=== PATIENT | male | born 1965 | race Caucasian/White ===

== ENCOUNTER 2021-07-09 04:06 | Day surgery (SDC) | payer BC, SELFPAY ==
[2021-06-25 13:54] VITALS: BMI 36.6
--- NOTE | 2021-07-08 12:21 | PM.HPGS ---
History of Present Illness History of Present Illness Consent: Risks, benefits, and alternatives have been discussed and questions answered. Patient agrees to proceed with procedure. Chief complaint: GERD, neoplasm screening Narrative: Valentin Crow is a 55 year old male With acid reflux symptoms. he also had passed some blood in his stools over month or so ago there was dark red and clotted He is also referred for colon cancer screening. Review of Systems Review of Systems: All systems reviewed & are unremarkable except as noted in HPI and below PMFSH Past Medical History Medical History Hyperlipidemia Obesity Social History Social History Years smoked: 6 Smoking status: Former smoker Tobacco type: cigarettes Alcohol intake: current Drinks per week: 12 Substance use: never Substance use type: does not use Living arrangements: with family Spiritual care concerns: No Meds Home Medications and Allergies Home Medications Medication Instructions Recorded Confirmed Type folic acid 1 mg PO DAILY 06/25/21 06/25/21 History rosuvastatin 40 mg PO DAILY 06/25/21 06/25/21 History Allergies Allergy/AdvReac Type Severity Reaction Status Date / Time No Known Allergies Allergy Verified 07/09/21 08:38 Exam Resp: Auscultation: clear to auscultation bilaterally Cardio: Rate: regular rate Rhythm: regular rhythm GI: GI Palp: Yes Soft to palpation and No Tenderness to palpation present (GI) Assessment and Plan Assessment and plan (1) Colon cancer screening: Code(s): Z12.11 - Encounter for screening for malignant neoplasm of colon Status: Acute Assessment and Plan: Colonoscopy with possible biopsy or polypectomy or cautery or injection of substances. (2) Melena: Code(s): K92.1 - Melena Status: Acute Assessment and Plan: EGD with possible biopsy or dilatation or cautery.
[2021-07-09 08:38] VITALS: BP 149/83; PULSE 73; RESP 16; TEMP 36.4; O2SAT 96
[2021-07-09 08:40] VITALS: BMI 37.0
--- NOTE | 2021-07-09 08:45 | WPDANESEPPF ---
Anes - Initial Pre Proc Eval Procedure: Operation Date: 07/09/21 10:00 Proposed Procedures p Esophagogastroduodenoscopy & Screening Colonoscopy - Heriberto Mai MD Date/Time: 07/09/21 08:45 Surgeon: Heriberto Mai MD Pre Op Diagnosis: GERD, neoplasm screening Patient Data Age: 55 Gender: M Height: 1.83 m Weight: 123.8 kg Last Vital Signs Temp 36.4 C 07/09/21 08:38 Pulse 73 07/09/21 08:38 Resp 16 07/09/21 08:38 BP 149/83 H 07/09/21 08:38 Pulse Ox 96 07/09/21 08:38 Allergies Allergy/AdvReac Type Severity Reaction Status Date / Time No Known Allergies Allergy Verified 07/09/21 08:38 Home Medications Medication Instructions Recorded Confirmed Type folic acid 1 mg PO DAILY 06/25/21 06/25/21 History rosuvastatin 40 mg PO DAILY 06/25/21 06/25/21 History Patient hx anesthesia problems: none Family hx anesthesia problems: none Results Review: All pre-operative results and documents have been reviewed as part of the pre-operative evaluation. PMFSH Past Medical History Medical History (Updated 07/09/21 @ 08:45 by Tj Simpson MD) Hyperlipidemia Obesity Social History Social History Years smoked: 6 Smoking status: Former smoker Tobacco type: cigarettes Alcohol intake: current Drinks per week: 12 Substance use: never Substance use type: does not use Living arrangements: with family Spiritual care concerns: No Anes - Eval Final PreProcedure Day of Procedure 07/09/21 08:45 Patient weight: obese Heart: regular rate and rhythm Lungs: clear to auscultation Airway: Mallampati scale class II Neurological: alert and oriented Last oral intake: >/= 8 hours ASA classification: II Emergent: no Anesthetic plan: proceed Anesthesia type and monitoring: general GIVS and standard monitoring Results Review: All pre-operative results and documents have been reviewed as part of the pre-operative evaluation. Informed Consent: The patient's anesthetic plan and its attendant risks and benefits were discussed with the patient/family/POA. Questions were solicited and answers provided to the satisfaction of the patient/family/POA.
[2021-07-09] MEDS: LACTATED RINGERS 1,000 ML 150 ML IV CONT (08:50)
[2021-07-09] MEDS: BENZOCAINE (*SP) 60 ML SPRAY CAN (HURRICAINE) 1 SPRAY MUCOUS MEM (09:40)
--- NOTE | 2021-07-09 09:49 | SUR.OPER ---
EGD ENDED AT 944, COLONOSCOPY BEGAN AT 952.
[2021-07-09] MEDS: SIMETHICONE ORAL SUSPENSION 20 MG/0.3 ML 30 ML BOTTLE 0.6 ML IRRIGATION (10:02)
[2021-07-09 10:16] VITALS: BP 116/71; PULSE 69; RESP 16; O2SAT 96
[2021-07-09 10:26] VITALS: BP 125/89; PULSE 71; RESP 16; O2SAT 100
[2021-07-09 10:36] VITALS: BP 136/93; PULSE 65; RESP 16; O2SAT 98
== END 2021-07-09 10:50 | disposition home or self-care (01) ==
PROVIDERS: PCP Internal Medicine; Visit Provider Internal Medicine Gastroenterology
PROC: 0DJ08ZZ Inspection of Upper Intestinal Tract, Via Natural or Artificial Opening Endoscopic (ICD-10-PCS; CPT 43235; principal; 2021-07-09 10:00)
DX: Z12.11 Encounter for screening for malignant neoplasm of colon (principal); C18.7 Malignant neoplasm of sigmoid colon; D12.4 Benign neoplasm of descending colon; K57.30 Diverticulosis of large intestine without perforation or abscess without bleeding; K92.1 Melena; K21.9 Gastro-esophageal reflux disease without esophagitis; K29.70 Gastritis, unspecified, without bleeding; E78.5 Hyperlipidemia, unspecified; E66.9 Obesity, unspecified; Z68.37 Body mass index [BMI] 37.0-37.9, adult; Z87.891 Personal history of nicotine dependence
CPT/HCPCS: 45385; 45380; 45381; 43239; 87081; 88305; J2704; J7120

== ENCOUNTER 2021-07-22 17:12 | Outpatient (CLI) | payer BC, SELFPAY ==
--- NOTE | ~2021-07-22 | CT_ITS ---
EXAMINATION: CT abdomen pelvis w con INDICATION: Malignant neoplasm of the sigmoid colon TECHNIQUE: Computed tomographic images of the abdomen and pelvis were obtained after the administrati on of 100 cc of Omnipaque 350 intravenous contrast. The dose-length product (DLP) was 1531.94 mGy-cm. Automated exposure control and iterative reconstruction technique were employed. COMPARISON: None available FINDINGS: The lung bases are clear. The heart size is normal. The liver, spleen, pancreas, gallbladde r, and adrenal glands are normal. Cysts of the right kidney measure up to 2 cm. The left kidney is un remarkable. There is irregular wall thickening of the sigmoid colon likely corresponding to known mal ignancy. Lymph nodes in the adjacent sigmoid mesentery are mildly enlarged. There is no free intraper itoneal gas or evidence of bowel obstruction. There is severe lumbar spondylosis. IMPRESSION: 1. Wall thickening of the sigmoid colon likely corresponding to known malignancy. Mildly enlarged adj acent mesenteric lymph nodes may be reactive or metastatic. Reviewed, dictated and finalized at location F. IMPRESSION: 1. Wall thickening of the sigmoid colon likely corresponding to known malignanc y. Mildly enlarged adjacent mesenteric lymph nodes may be reactive or metastati c.
== END 2021-07-22 17:13 | disposition home or self-care (01) ==
PROVIDERS: PCP Internal Medicine; Visit Provider Internal Medicine Gastroenterology
DX: C18.7 Malignant neoplasm of sigmoid colon (principal); N28.1 Cyst of kidney, acquired; M47.816 Spondylosis without myelopathy or radiculopathy, lumbar region; R59.0 Localized enlarged lymph nodes
CPT/HCPCS: 74177; Q9967

== ENCOUNTER 2021-07-30 02:04 | Day surgery (SDC) | payer BC, SELFPAY ==
[2021-07-27 09:02] VITALS: BMI 35.9
--- NOTE | 2021-07-27 09:03 | PC.NURSE ---
Report to the Outpatient Waiting Room, entrance under the green pavilion located off [facility], at time _0700___ on date ___07/30/21____. OR Time: . - You and your visitor will be asked a series of questions to screen for COVID 19 for your protection. - Only one visitor is allowed at this time. - The patient visitor is requested to leave or wait in car when not with patient. - A mask is required within the hospital. Patients may have clear liquids (water, carbonated beverages, clear teas, apple juice) until 3 hours prior to surgery with a maximum of 20 ounces. - No food from midnight until time of surgery - Infants may have breast milk until 4 hours before surgery, formula 6 hours prior to surgery. - Children will be allowed to drink immediately following surgery. If applicable, please bring a bottle or sippy cup to assist with drinking. Juice, water, soda, and popsicles are readily available. For infants on formula, please bring formula the day of surgery. Pacifiers are allowed. Take the following medications with a SIP of water the morning of surgery: ___NONE Medications to discontinue per physician __FOLIC ACID Date to take last dose__07/27/21 Please no make-up, nail occitan, hairspray, perfume, deodorant, or body powder the day of surgery. No jewelry (including any body piercings) or valuables the day of surgery, leave them at home. Please take a shower or bath the night before, or the morning of, surgery with an antibacterial soap. Wear comfortable, loose fitting clothing. Children are encouraged to wear pajamas. - Jewelry must be removed prior to entering the operating room. Rings and piercings that are not removed may be cut off. - The hospital will not accept responsibility for valuables. - Please leave all valuables, including medications, at home the day of surgery. If you are going home after surgery, a licensed batch mixing truck driver must drive you home. - NO public transportation without another adult. - We recommend that an adult stay with you for 24 hours following discharge. - We also recommend that you do not drive, make important decision, drink alcoholic beverages, or take any drugs that were not prescribed by your health care provider for at least 24 hours after your discharge time. For Pediatric surgeries, we recommend two adults accompany the child home (only one inside the building at this time). Follow any additional instructions given to you from your surgeon. If you or anyone in your household have experienced Covid symptoms in the past week, please notify your surgeon or the nurse liaison at the phone number below for possible testing. Telephone instructions given to __PATIENT___and asked if any additional questions and then verbalized understanding. Patient advised to call surgeon office or pre surgery nurse liaison [phone] if any additional questions.
[2021-07-30] VITALS (7 sets, daily range): BP systolic 139–161; BP diastolic 76–91; PULSE 71–85; RESP 12–16; TEMP 36.2–36.7; O2SAT 94–100
--- NOTE | 2021-07-30 09:07 | ECG_ITS ---
Measurements Intervals [place] Rate: 76 P: 57 UT: 172 QRS: 15 QRSD: 94 T: 32 QT: 392 QTc: 442 Interpretive Statements SINUS RHYTHM NORMAL ECG Electronically Signed On 07-30-2021 9:35:01 CDT by Madi Nicholas D.O.
[2021-07-30] MEDS: ACETAMINOPHEN 500 MG TABLET 1000 MG PO (09:25)
[2021-07-30] MEDS: KETOROLAC 15 MG/ML VIAL (*BKC) IV PUSH (09:26)
[2021-07-30] MEDS: LACTATED RINGERS 1,000 ML 30 ML IV CONT (09:29)
--- NOTE | 2021-07-30 09:36 | WPDANESEPPF ---
Anes - Initial Pre Proc Eval Procedure: Operation Date: 07/30/21 10:30 Proposed Procedures p Proctoscopy, Sigmoidoscopy - Allen De La Cruz MD Date/Time: 07/30/21 09:36 Surgeon: Allen De La Cruz MD Pre Op Diagnosis: Sigmoid Colon Ca Patient Data Age: 55 Gender: M Height: 1.83 m Weight: 124 kg Last Vital Signs Temp 36.7 C 07/30/21 09:31 Pulse 85 07/30/21 09:31 Resp 16 07/30/21 09:31 BP 161/87 H 07/30/21 09:31 Pulse Ox 96 07/30/21 09:31 Allergies Allergy/AdvReac Type Severity Reaction Status Date / Time No Known Allergies Allergy Verified 07/27/21 08:57 Home Medications Medication Instructions Recorded Confirmed Type folic acid 1 mg PO DAILY 06/25/21 07/29/21 History rosuvastatin 40 mg PO DAILY 06/25/21 07/29/21 History Patient hx anesthesia problems: none Family hx anesthesia problems: none Results Review: All pre-operative results and documents have been reviewed as part of the pre-operative evaluation. [facility] Past Medical History Medical History Hyperlipidemia Obesity Surgical History Surgical History [place] teeth extracted Family History Family History Father Heart disease Lung cancer Social History Social History (Updated 07/30/21 @ 09:40 by Colby Boateng DO) Smoking packs per day: 1 Smoking cigarettes per day: 20.0 Years smoked: 8 Smoking pack-years: 8.00 Smoking status: Former smoker Tobacco type: cigarettes Alcohol intake: current Alcohol use details: 4-6 drinks/day most days Substance use: never Substance use type: does not use Living arrangements: with family 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 Informed Consent: The patient's anesthetic plan and its attendant risks and benefits were discussed with the patient/family/POA. Questions were solicited and answers provided to the satisfaction of the patient/family/POA.
--- NOTE | 2021-07-30 09:53 | WPDHPUPDATE1 ---
History and Physical Update Update Date/Time: 07/30/21 09:53 History and Physical has been reviewed, including an updated exam of the patient. There are NO changes in the patient's condition. Risks, benefits, and alternatives have been discussed and questions answered. Patient agrees to proceed with procedure.
[2021-07-30] MEDS: ceFAZolin 3 GM/D5W 100 ML 100 ML IVPB (10:00)
--- NOTE | 2021-07-30 10:36 | W.PM.PROC2 ---
Procedure Note - Detailed Date of Procedure 07/30/21 Pre-op Diagnosis Sigmoid Colon Ca Post-op Diagnosis Same Procedure Performed Proctosigmoidoscopy Surgeon Allen De La Cruz MD Anesthesia General Indications Patient had recent colonoscopy that showed a distal sigmoid colon cancer. He is taken to surgery now for proctosigmoidoscopy to ensure this is in the sigmoid colon rather than the upper rectum which would of course be managed much differently. Findings Tumor was seen on the right side of the distal sigmoid colon at 21-22 cm. Description of Procedure Patient was taken to surgery and induced into general anesthesia. He was then turned prone and placed in prone ethan-knife position. Prep and drape of the perianal area was carried out. Proctosigmoidoscopy was carefully performed and advanced to the edge of the tumor. The lower margin of the tumor was at 21-22 cm from the anal verge. Tumor did not appear circumferential. The scope was then carefully withdrawn with no other abnormalities being noted. Patient was then returned to a supine position awakened extubated and taken to recovery. Estimated Blood Loss 0 Drains No Packing No Pathology None sent Complications No immediate complications Condition Stable Disposition PACU
--- NOTE | 2021-07-30 10:51 | SUR.PHASEI ---
1051: simple mask removed
== END 2021-07-30 12:24 | disposition home or self-care (01) ==
PROVIDERS: PCP Internal Medicine; Visit Provider Surgery
PROC: (CPT 45330; principal; 2021-07-30 10:30)
DX: C18.7 Malignant neoplasm of sigmoid colon (principal); E78.5 Hyperlipidemia, unspecified; E66.9 Obesity, unspecified; Z68.37 Body mass index [BMI] 37.0-37.9, adult; Z87.891 Personal history of nicotine dependence
CPT/HCPCS: 45330; 93005; A9270; J0330; J0690; J1100; J1885; J2250; J2405; J2704; J3010; J7120

== ENCOUNTER 2021-08-16 11:54 | Outpatient (CLI) | payer BC, SELFPAY ==
[2021-08-16 13:01] LABS: Basophils Absolute Auto 0.1 K/mm3 (0.0-0.1); Basophils Percent Auto 1.4 % (0.2-1.2); Eosinophils Absolute Auto 0.2 K/mm3 (0-0.3); Eosinophils Percent Auto 2.6 % (0-4.4); Hematocrit 42.2 % (42.0-52.0); Hemoglobin 14.2 g/dL (14.0-18.0); Immature Granulocyte Absolute 0.01 K/mm3 (0.00-0.031); Immature Granulocyte Percent A 0.2 % (0-0.5); Lymphocytes Absolute Auto 1.25 K/mm3 (0.9-3.2); Lymphocytes Percent Auto 18.8 % (18.3-44.2); Mean Corpuscular HGB Conc 33.6 g/dl (32-36); Mean Corpuscular Hemoglobin 31.3 pg (26-34); Mean Platelet Volume 8.3 fl (7.4-10.4); Monocytes Absolute Auto 0.9 K/mm3 (0.1-0.6); Neutrophils Absolute Auto 4.3 K/mm3 (1.3-6.7); Platelet Count Result 143 k/mm3 (150-375); Red Blood Count 4.54 M/mm3 (4.6-6.20); Red Cell Distribution Width 12.3 % (11.5-14.5); White Blood Count 6.6 K/mm3 (4.5-10.0)
[2021-08-16 13:11] LABS: Anion Gap 7 mmol/L (8-16); Blood Urea Nitrogen 12 mg/dL (9-20); Calcium 8.9 mg/dL (8.4-10.2); Carbon Dioxide 25 mmol/L (22-30); Chloride 104 mmol/L (98-107); Estimated Glomerular Filt Rate > 60; Glucose 102 mg/dL (65-110); Potassium 4.4 mmol/L (3.4-5.0); Sodium 136 mmol/L (137-145)
[2021-08-16 13:42] LABS: Carcinoembryonic Antigen 0.8 ng/mL (0.0-3.0)
== END 2021-08-16 11:55 | disposition home or self-care (01) ==
PROVIDERS: PCP Internal Medicine; Visit Provider Surgery
DX: C18.7 Malignant neoplasm of sigmoid colon (principal)
CPT/HCPCS: 36415; 80048; 82378; 85025; 86850; 86900; 86901

== ENCOUNTER 2021-08-24 16:39 | Inpatient (IN) | payer BC, SELFPAY ==
--- NOTE | 2021-08-16 11:58 | PC.NURSE ---
Report to the Outpatient Waiting Room, entrance under the green pavilion located off [facility], at time _1000_ on date _08/24/21_. OR Time: _1200_. - You and your visitor will be asked a series of questions to screen for COVID 19 for your protection. - Only one visitor is allowed at this time. - The patient visitor is requested to leave or wait in car when not with patient. - A mask is required within the hospital. Patients may have clear liquids (water, carbonated beverages, clear teas, apple juice) until 3 hours prior to surgery (0900 AM) with a maximum of 20 ounces. - No food from midnight until time of surgery Take the following medications with a SIP of water the morning of surgery: _NONE__ Medications to discontinue per ANESTHESIA - FOLIC ACID 3 DAYS PRIOR TO SURGERY, Date to take last dose 08/20/21_ Please no deodorant, or body powder the day of surgery. No jewelry (including any body piercings) or valuables the day of surgery, leave them at home. Please take a shower or bath the night before, or the morning of, surgery with an antibacterial soap. Wear comfortable, loose fitting clothing. - Jewelry must be removed prior to entering the operating room. Rings and piercings that are not removed may be cut off. - The hospital will not accept responsibility for valuables. - Please leave all valuables, including medications, at home the day of surgery. If you are going home after surgery, a licensed public transit bus driver must drive you home. - NO public transportation without another adult. - We recommend that an adult stay with you for 24 hours following discharge. - We also recommend that you do not drive, make important decision, drink alcoholic beverages, or take any drugs that were not prescribed by your health care provider for at least 24 hours after your discharge time. Follow any additional instructions given to you from DR. HARRIS - DIET, ENSURE BUNDLE, BOWEL PREP, PRE-OP ANTIBIOTICS, HIBICLENS SHOWER NIGHT BEFORE AND THE AM OF SURGERY If you or anyone in your household have experienced Covid symptoms in the past week, please notify your surgeon or the nurse liaison at the phone number below for possible testing. Telephone instructions given to _PT & SPOUSE_and asked if any additional questions and then verbalized understanding. Patient advised to call surgeon office or pre surgery nurse liaison [phone] if any additional questions.
[2021-08-16 12:12] VITALS: BP 170/82; PULSE 82; RESP 20; TEMP 36.8; O2SAT 98; BMI 37.3
[2021-08-24] VITALS (14 sets, daily range): BP systolic 139–187; BP diastolic 79–95; PULSE 75–92; RESP 8–20; TEMP 36.6–37.3; O2SAT 95–100; BMI 36.1
--- NOTE | ~2021-08-24 | XR_ITS ---
XR abdomen obstructive series 08/26/2021 11:47 Indication: Abdominal bloating and distention. Procedure: Supine and upright views of the abdomen Comparison: No prior studies for comparison. Findings: There are mildly dilated small bowel loops in the left mid abdomen with air-fluid levels. T here is gas in the colon. No free air or free fluid. Impression: 1: Dilated small bowel with air-fluid levels, small bowel obstruction versus ileus. Reviewed, dictated and finalized at location A. Impression: 1: Dilated small bowel with air-fluid levels, small bowel obstruction versus il eus.
[2021-08-24] MEDS: ACETAMINOPHEN 500 MG TABLET 1000 MG PO (09:50)
[2021-08-24] MEDS: LACTATED RINGERS 1,000 ML 30 ML IV CONT ×3 (10:22→15:15)
--- NOTE | 2021-08-24 11:09 | WPDANESEPPF ---
Anes - Initial Pre Proc Eval Procedure: Operation Date: 08/24/21 12:00 Proposed Procedures p Hand Assisted Laparoscopic Sigmoid Colon Resection - Allen De La Cruz MD Date/Time: 08/24/21 11:09 Surgeon: Allen De La Cruz MD Pre Op Diagnosis: sigmoid colon CA Patient Data Age: 55 Gender: M Height: 1.83 m Weight: 121 kg Last Vital Signs Temp 36.6 C 08/24/21 10:35 Pulse 75 08/24/21 10:35 Resp 16 08/24/21 10:35 BP 140/82 08/24/21 10:35 Pulse Ox 95 08/24/21 10:35 O2 Del Method Room Air 08/24/21 10:35 Allergies Allergy/AdvReac Type Severity Reaction Status Date / Time No Known Allergies Allergy Verified 08/24/21 09:46 Home Medications Medication Instructions Recorded Confirmed Type folic acid 1 mg tablet 1 mg PO QAM 06/25/21 08/24/21 History rosuvastatin 40 mg tablet 40 mg PO QAM 06/25/21 08/24/21 History Patient hx anesthesia problems: none Family hx anesthesia problems: none Results Review: All pre-operative results and documents have been reviewed as part of the pre-operative evaluation. [facility] Past Medical History Medical History (Updated 08/24/21 @ 11:10 by Tj Simpson MD) Colon cancer Hyperlipidemia Obesity Surgical History Surgical History (Updated 08/24/21 @ 11:10 by Tj Simpson MD) H/O colonoscopy [place] teeth extracted Family History Family History Father Heart disease Lung cancer Social History Social History Smoking packs per day: 1 Smoking cigarettes per day: 20.0 Years smoked: 8 Smoking pack-years: 8.00 Smoking status: Former smoker Tobacco type: cigarettes Second hand tobacco smoke exposure: No Smoking end date: 03/27/94 Alcohol intake: current Drinks per week: 6 Alcohol use details: 4-6 drinks/day most days Substance use: never Substance use type: does not use Living arrangements: with family 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 Informed Consent: The patient's anesthetic plan and its attendant risks and benefits were discussed with the patient/family/POA. Questions were solicited and answers provided to the satisfaction of the patient/family/POA.
--- NOTE | 2021-08-24 11:14 | WPDHPUPDATE1 ---
History and Physical Update Update Date/Time: 08/24/21 11:14 History and Physical has been reviewed, including an updated exam of the patient. There are NO changes in the patient's condition. Risks, benefits, and alternatives have been discussed and questions answered. Patient agrees to proceed with procedure.
[2021-08-24] MEDS: KETOROLAC 15 MG/ML VIAL (*BKC) IV PUSH (11:19)
[2021-08-24] MEDS: ALVIMOPAN 12 MG CAPSULE PO (11:19)
[2021-08-24] MEDS: ceFAZolin 3 GM/D5W 100 ML 100 ML IVPB (11:45)
[2021-08-24] MEDS: metroNIDAZOLE 500 MG/ISO 100ML 500 MG/100 ML BAG 100 MG IVPB (11:50)
[2021-08-24] MEDS: LIDO 1%/EPINEPHRINE/PF 1:200,000 30 ML VIAL 60 ML XX (14:22)
--- NOTE | 2021-08-24 15:14 | W.PM.PROC2 ---
Procedure Note - Detailed Date of Procedure 08/24/21 Pre-op Diagnosis sigmoid colon CA Post-op Diagnosis Same Procedure Performed Hand access laparoscopic sigmoidectomy with stapled number 33 EEA colorectal anastomosis Surgeon Allen De La Cruz MD Hooker Off David Mcguire D.O. Anesthesia General and Local (0.5% Marcaine) Indications Patient was found on colonoscopy to have a distal sigmoid colon cancer. His CT scan did not show any evidence of metastatic disease. He had a proctosigmoidoscopy and the tumor was at least 20-22 cm from the anal verge. He is taken to surgery now for hand access laparoscopic sigmoidectomy. Findings The tumor was tattooed and easily found. There were no grossly enlarged or suspicious lymph nodes. There was no evidence of metastatic disease. Description of Procedure The patient was taken to surgery and induced into general anesthesia. He was placed in lithotomy with Ramses stirrups. Gaviria catheter was placed. Rectal irrigation and rectal tube were placed. Patient was placed in Trendelenburg. The proposed midline incision at the umbilicus was marked on the skin. Local was infiltrated in the area of the anticipated incision and in the deeper subcutaneous tissues. Incision was made dissection was carried down through the subcutaneous. Cautery was used for hemostasis. We dissected down to the midline fascia. The fascia was opened in the midline and dissection was carried into the peritoneal cavity. The peritoneal opening was extended the length of the wound. We checked for adhesions inside the abdomen and found none. The Renato wound guard was then placed. The GelPort was placed. With the hand in the abdomen, I placed a 12 mm right lower quadrant trocar. Local was infiltrated and incision was made. The trocar was position with my hand against the abdominal wall to avoid any intra-abdominal injury. With this trocar in place, we insufflated. A 5 mm trocar was then placed just right of midline about mcc between the umbilicus and the pubis. Finally a 10 11 port was placed in the left upper quadrant. Patient was turned so the left side was slightly elevated and was in fairly steep Trendelenburg. Initially I used the LigaSure and took down some sigmoid colon adhesions on the left side of the upper pelvis. The sigmoid was fairly mobile and lengthy. At this point I began dissection at the base of the mesentery on the right side of the sigmoid in the vicinity of the sacral promontory. Dissection was performed here opening the peritoneum distally and proximally. I then began a medial to lateral dissection and found the left ureter. I dissected the left ureter out above and below this area so that it was carefully protected throughout the procedure. I then continued the dissection retrograde in the sigmoid and left colon mesentery to the distal aorta. I continued the dissection and eventually found the inferior mesenteric artery near its origin. The inferior mesenteric artery was dissected out near its origin. The TONA was then divided using the Ethicon Bone Gap Flex 60 mm stapler. This worked well. There was no bleeding. We then used the LigaSure and divided the mesentery from just distal to the TONA up to the vicinity of the distal descending colon. I then expose some additional mesenteric attachments to the retroperitoneum and divided those with the LigaSure. We approached the sacral promontory and gently dissected with the LigaSure down the sacral promontory to the vicinity of the upper rectum. When this posterior dissection was completed, I then went to the right lateral rectal attachments and divided this area with the LigaSure. I chose an area on the upper rectum that was sufficiently past the tumor. I divided the rectal mesentery on the patient's right side and some of the posterior rectal mesentery. I then continued the dissection looking at the patient's left side of the distal sigmoid and upper rectum. I donald
[2021-08-24] MEDS: PROPARACAINE HCL 0.5% 15 ML OPHTH SOLN 1 DROP EACH EYE (16:02)
--- NOTE | 2021-08-24 16:09 | SUR.PHASEI ---
1600 pt complains scratching to right eye,right eye reddened,called dr nayak and orders received.proparacaine 1 gtt to right eye with pt states immediate relief.
--- NOTE | 2021-08-24 16:57 | PC.NURSE ---
This patient, Valentin Crow, was admitted to 2 Medical Room 241-. Patient/family oriented to hospital policies and general routines including ID bracelet, bed and alarms, visiting hours, pain management, procedures, bathroom and other care routines, personal items, smoking policy, room service/diet, and visiting hours. Information on how to activate the Rapid Response Team has been discussed. Patient/Family are encouraged to report perceived risks to care and to ask questions if they do not understand what they are told or what they should do.
[2021-08-24] MEDS: HYDROcodone/acetaminophen (*CRX) 5-325 MG TABLET 1 TAB PO (17:29)
[2021-08-24] MEDS: LACTATED RINGERS 1,000 ML 80 ML IV CONT (17:29)
[2021-08-24] MEDS: FAMOTIDINE 20 MG/2 ML VIAL IV PUSH (19:53)
[2021-08-24] MEDS: ENOXAPARIN 30 MG/0.3 ML SYRINGE SUB-Q (19:53)
[2021-08-24] MEDS: MORPHINE SULFATE (*CRX) 2 MG/ML INJ IV PUSH (19:53)
[2021-08-24] MEDS: MOXIFLOXACIN HCL 0.5% 3 ML OPHTH SOLN 1 DROP EACH EYE (20:17)
[2021-08-24] MEDS: HYDROcodone/acetaminophen (*CRX) 10-325 MG TABLET 1 TAB PO (23:39)
[2021-08-25] VITALS (9 sets, daily range): BP systolic 133–177; BP diastolic 71–94; PULSE 80–89; RESP 14–21; TEMP 36.1–37; O2SAT 92–100
[2021-08-25] MEDS: MORPHINE SULFATE (*CRX) 2 MG/ML INJ IV PUSH (03:25)
[2021-08-25] MEDS: LACTATED RINGERS 1,000 ML 80 ML IV CONT (03:28)
[2021-08-25 05:43] LABS: Hematocrit 37.8 % (42.0-52.0); Hemoglobin 12.9 g/dL (14.0-18.0); Mean Corpuscular HGB Conc 34.1 g/dl (32-36); Mean Corpuscular Hemoglobin 30.9 pg (26-34); Mean Corpuscular Volume 90.4 fl (80-100); Mean Platelet Volume 8.8 fl (7.4-10.4); Platelet Count Result 160 k/mm3 (150-375); Red Blood Count 4.18 M/mm3 (4.6-6.20); Red Cell Distribution Width 12.2 % (11.5-14.5); White Blood Count 9.5 K/mm3 (4.5-10.0)
[2021-08-25 05:56] LABS: Anion Gap 5 mmol/L (8-16); Blood Urea Nitrogen 6 mg/dL (9-20); Calcium 8.5 mg/dL (8.4-10.2); Carbon Dioxide 24 mmol/L (22-30); Chloride 107 mmol/L (98-107); Estimated CRCL calculation 155 ml/min; Estimated Glomerular Filt Rate > 60; Glucose 133 mg/dL (65-110); Potassium 3.4 mmol/L (3.4-5.0); Sodium 136 mmol/L (137-145)
[2021-08-25] MEDS: HYDROcodone/acetaminophen (*CRX) 5-325 MG TABLET 1 TAB PO ×2 (06:03→18:33)
[2021-08-25] MEDS: MOXIFLOXACIN HCL 0.5% 3 ML OPHTH SOLN 1 DROP EACH EYE ×2 (06:03→13:03)
[2021-08-25] MEDS: ROSUVASTATIN 10 MG TABLET 40 MG PO (08:43)
[2021-08-25] MEDS: ENOXAPARIN 40 MG/0.4 ML SYRINGE SUB-Q (08:58)
[2021-08-25] MEDS: FAMOTIDINE 20 MG TABLET PO ×2 (08:58→21:17)
--- NOTE | 2021-08-25 09:17 | WPDANESPN ---
Anes - Prog Note Post-Op Date/Time: 08/25/21 09:17 Cardiovascular status: normal Respiratory status: normal Airway patency: baseline Mental status: baseline Post-Op hydration status: normal Vital Signs: Last Vital Signs Temp 36.1 C L 08/25/21 06:00 Pulse 86 08/25/21 06:00 Resp 18 08/25/21 06:00 BP 159/88 H 08/25/21 06:00 Pulse Ox 97 08/25/21 07:44 O2 Del Method Nasal Cannula 08/25/21 07:44 O2 Flow Rate 2 08/25/21 07:44 Pain Score (VAS): 05/06 I/O: Intake & Output 08/24/21 08/25/21 08/25/21 23:59 07:59 15:59 Intake Total 736 1800 240 Balance 736 1800 240 Laboratory Tests 08/25/21 05:01 08/25/21 05:01 08/25/21 08/25/21 05:01 05:01 WBC 9.5 RBC 4.18 L Hgb 12.9 L Hct 37.8 L MCV 90.4 MCH 30.9 MCHC 34.1 RDW 12.2 Plt Count 160 MPV 8.8 Sodium 136 L Potassium 3.4 Chloride 107 Carbon Dioxide 24 Anion Gap 5 L BUN 6 L D Creatinine 0.60 L Estim Creat Clear Calc 155 Estimated GFR > 60 Glucose 133 H Calcium 8.5 Post-procedural complaints: none Patient Feedback: Patient satisfied with anesthetic care.
[2021-08-25] MEDS: HYDROcodone/acetaminophen (*CRX) 10-325 MG TABLET 1 TAB PO ×2 (10:17→14:30)
--- NOTE | 2021-08-25 12:32 | PM.PNGS ---
Progress Note: A&P Assessment and Plan (1) Adenocarcinoma of sigmoid colon: Code(s): C18.7 - Malignant neoplasm of sigmoid colon Status: Chronic Assessment and Plan: Doing well postop day 1. Will advance to full liquid diet. Ambulate in halls. Saline lock his IV fluids. Recheck labs exam again tomorrow morning. Progressing well. Subjective Subjective Date/Time Seen: 08/25/21 12:32 Post Op day: 1 Patient reports: no new complaints, pain is less (Taking both p.o. and IV analgesics), tolerating liquids well, bowel movement (Small) and afebrile Exam Const: General: cooperative, comfortable, no acute distress, alert and awake; No confusion Nutritional Appearance: obese Orientation/consciousness: patient oriented x3 and No confusion GI: Inspection: non-distended, incision (Incisions dry and healing well) and obesity GI Palp: Yes Soft to palpation, Yes Tenderness to palpation present (GI) (Mild, appropriate tenderness), No Guarding due to palpation present (GI) and No Rebound tenderness present Neuro: General: patient oriented x3, no focal motor deficits and No confusion Extrem: General: no calf tenderness and no edema Psych: Affect: normal affect Insight: Good insight present (Psych) Judgement: Good judgement present (Psych) Objective Data Vital Signs Vital Signs: Vital Signs - 24 hr 08/24/21 14:57 08/24/21 15:10 08/24/21 15:25 Temperature 37.3 C Pulse Rate 89 88 84 Respiratory Rate 10 L 12 10 L Blood Pressure 148/95 H 144/89 H 145/91 H Pulse Oximetry 97 98 99 Oxygen Delivery Simple Face Mask Simple Face Mask Simple Face Mask Oxygen Flow Rate 10 10 10 08/24/21 15:40 08/24/21 15:55 08/24/21 16:10 Temperature Pulse Rate 84 80 79 Respiratory Rate 10 L 10 L 13 Blood Pressure 148/89 H 167/90 H 156/84 H Pulse Oximetry 95 96 95 Oxygen Delivery Room Air Room Air Room Air Oxygen Flow Rate 08/24/21 16:25 08/24/21 17:04 08/24/21 17:12 Temperature 36.9 C Pulse Rate 81 76 Respiratory Rate 8 L 14 Blood Pressure 158/92 H 173/92 H Pulse Oximetry 99 96 100 Oxygen Delivery Nasal Cannula Nasal Cannula Oxygen Flow Rate 2 2 08/24/21 17:30 08/24/21 18:00 08/24/21 18:58 Temperature 37.0 C 36.8 C 36.8 C Pulse Rate 84 87 92 Respiratory Rate 14 14 14 Blood Pressure 167/95 H 187/93 H 170/79 H Pulse Oximetry 97 98 97 Oxygen Delivery Oxygen Flow Rate 08/24/21 20:00 08/24/21 22:00 08/25/21 02:00 Temperature 36.6 C 36.7 C Pulse Rate 88 89 Respiratory Rate 20 21 H Blood Pressure 139/79 147/71 H Pulse Oximetry 99 100 Oxygen Delivery Nasal Cannula Oxygen Flow Rate 2 08/25/21 06:00 08/25/21 07:44 08/25/21 09:45 Temperature 36.1 C L 36.7 C Pulse Rate 86 87 Respiratory Rate 18 16 Blood Pressure 159/88 H 177/94 H Pulse Oximetry 96 97 98 Oxygen Delivery Nasal Cannula Oxygen Flow Rate 2 08/25/21 10:00 Temperature Pulse Rate Respiratory Rate Blood Pressure 154/88 H Pulse Oximetry Oxygen Delivery Oxygen Flow Rate Intake/Output Intake/Output: Intake & Output 08/22/21 08/23/21 08/24/21 08/25/21 23:59 23:59 23:59 23:59 Intake Total 2936 2040 Balance 2936 2040 Meds/Results Medications: Active Medications Generic Name Dose Route Start Last Admin Trade Name Freq PRN Reason Stop Dose Admin Acetaminophen 500 mg 08/24/21 16:39 Acetaminophen 500 Mg Tablet PO Q6H PRN Mild Pain (1-3) or Fever Hydrocodone Bitart/Acetaminophen 1 tab 08/24/21 16:39 08/25/21 06:03 Hydrocodone/Acetaminophen (*Crx) 5-325 Mg Tablet PO 1 tab Q4H PRN Administration Pain Rated 4-6 Hydrocodone Bitart/Acetaminophen 1 tab 08/24/21 16:39 08/25/21 10:17 Hydrocodone/Acetaminophen (*Crx) 10-325 Mg Tablet PO 1 tab Q4H PRN Administration Pain Rated 7-10 Alvimopan 12 mg 08/25/21 21:00 Alvimopan 12 Mg Capsule PO 09/01/21 20:59 Q12HR [facility] Enoxaparin Sodium 40 mg 08/25/21 09:00 08/25/21 08:58
[2021-08-25] MEDS: ALVIMOPAN 12 MG CAPSULE PO (21:17)
[2021-08-26] VITALS (8 sets, daily range): BP systolic 126–183; BP diastolic 86–97; PULSE 82–88; RESP 16–20; TEMP 36.4–37.1; O2SAT 94–99
[2021-08-26 05:56] LABS: Hemoglobin 12.5 g/dL (14.0-18.0); Mean Corpuscular HGB Conc 33.8 g/dl (32-36); Mean Corpuscular Hemoglobin 31.2 pg (26-34); Mean Corpuscular Volume 92.3 fl (80-100); Platelet Count Result 136 k/mm3 (150-375); Red Blood Count 4.01 M/mm3 (4.6-6.20); Red Cell Distribution Width 12.3 % (11.5-14.5); White Blood Count 9.4 K/mm3 (4.5-10.0)
[2021-08-26 06:16] LABS: Anion Gap 6 mmol/L (8-16); Blood Urea Nitrogen 5 mg/dL (9-20); Calcium 8.3 mg/dL (8.4-10.2); Carbon Dioxide 26 mmol/L (22-30); Chloride 104 mmol/L (98-107); Estimated CRCL calculation 183 ml/min; Estimated Glomerular Filt Rate > 60; Glucose 134 mg/dL (65-110); Potassium 3.3 mmol/L (3.4-5.0); Sodium 136 mmol/L (137-145)
[2021-08-26] MEDS: ENOXAPARIN 40 MG/0.4 ML SYRINGE SUB-Q (08:15)
[2021-08-26] MEDS: ROSUVASTATIN 10 MG TABLET 40 MG PO (08:15)
[2021-08-26] MEDS: ALVIMOPAN 12 MG CAPSULE PO ×2 (08:15→21:59)
[2021-08-26] MEDS: FAMOTIDINE 20 MG TABLET PO ×2 (08:15→21:59)
[2021-08-26] MEDS: hydrALAZINE HCL 20 MG/ML VIAL 10 MG IV PUSH (11:14)
[2021-08-26] MEDS: KCL 40 MEQ/D5/0.9% SOD CHL 1,000 ML 80 ML IV CONT ×2 (11:14→22:03)
--- NOTE | 2021-08-26 14:05 | PM.PNGS ---
Progress Note: A&P Assessment and Plan (1) Adenocarcinoma of sigmoid colon: Code(s): C18.7 - Malignant neoplasm of sigmoid colon Status: Chronic Assessment and Plan: POD#2 and patient having a lot of bloating today. He had a large amount of liquid intake yesterday. He was made NPO and obstructive series ordered, which showed dilated small bowel consistent with SBO versus ileus. He is passing gas and having some bowel function. He is feeling much better this afternoon. Will leave NPO with ice chips for now and further discuss diet with Dr. De La Cruz. Encouraged him to walk in the halls and continue increasing activity as tolerated. Repeat labs tomorrow. Subjective Subjective Date/Time Seen: 08/26/21 14:05 Post Op day: 2 Patient reports: voiding w/o difficulty, flatus, bowel movement and afebrile Interval history: Patient seen and examined this afternoon. He reports feeling better than he did this morning. He had almost 3 L of liquid intake yesterday and began feeling really bloated overnight. He reports tolerating activity. He denies any nausea or vomiting. He has been walking more today and has went into the bathroom with lots of flatus and some small liquid BMs when passing gas multiple times today. No other complaints at this time. Review of Systems Review of Systems: All systems reviewed & are unremarkable except as noted in HPI and below Constitutional: Constitutional: Reports as per HPI, Reports no additional constitutional complaints, Denies chills and Denies fever(s) Cardiovascular: Cardiovascular: Reports no additional cardiovascular complaints, Denies chest pain and Denies leg edema Respiratory: Respiratory: Reports no additional respiratory complaints, Denies cough and Denies dyspnea Gastrointestinal: Gastrointestinal: Reports as per HPI and Reports no additional gastrointestinal complaints Exam Const: General: no acute distress and awake Nutritional Appearance: obese Orientation/consciousness: patient oriented x3 Resp: Effort & Inspection: normal respiratory effort Auscultation: clear to auscultation bilaterally Cardio: Rate: regular rate Rhythm: regular rhythm GI: Inspection: distended, incision (Incisions dry and healing well) and obesity GI Palp: Yes Soft to palpation, Yes Tenderness to palpation present (GI) (minimal incisional tenderness) and No Guarding due to palpation present (GI) Auscultation: Hypoactive bowel sounds present Neuro: General: no focal motor deficits and No confusion Extrem: General: no calf tenderness and no edema Psych: Insight: Good insight present (Psych) Judgement: Good judgement present (Psych) Objective Data Vital Signs Vital Signs: Vital Signs - 24 hr 08/25/21 14:55 08/25/21 18:32 08/25/21 21:01 Temperature 98.1 F 98.4 F Pulse Rate 82 80 84 Respiratory Rate 14 18 Blood Pressure 152/81 H 167/85 H Pulse Oximetry 96 96 92 Oxygen Delivery Room Air 08/25/21 22:00 08/26/21 02:00 08/26/21 06:00 Temperature 98.6 F 98.4 F 97.6 F Pulse Rate 80 88 82 Respiratory Rate 18 20 16 Blood Pressure 133/77 176/86 H 156/87 H Pulse Oximetry 95 99 94 Oxygen Delivery 08/26/21 08:00 08/26/21 10:00 08/26/21 10:53 Temperature 97.7 F Pulse Rate 86 Respiratory Rate 16 Blood Pressure 183/97 H Pulse Oximetry 96 96 Oxygen Delivery Room Air Room Air Intake/Output Intake/Output: Intake & Output 08/23/21 08/24/21 08/25/21 08/26/21 23:59 23:59 23:59 23:59 Intake Total 2936 3880 690 Balance 2936 3880 690 Meds/Results Medications: Active Medications Generic Name Dose Route Start Last Admin Trade Name Freq PRN Reason Stop Dose Admin Acetaminophen 500 mg 08/24/21 16:39 Acetaminophen 500 Mg Tablet PO Q6H PRN Mild Pain (1-3) or Fever Hydrocodone Bitart/Acetaminophen 1 tab 08/24/21 16:39 08/25/21 18:33 Hydrocodone/Acetaminophen (*Crx) 5-325 Mg Tablet PO 1 tab Q4H PRN Administration Pain Rated 4-6 H
[2021-08-27] VITALS (7 sets, daily range): BP systolic 150–173; BP diastolic 76–89; PULSE 75–87; RESP 12–20; TEMP 36.2–37.3; O2SAT 95–100
[2021-08-27 06:08] LABS: Anion Gap 5 mmol/L (8-16); Blood Urea Nitrogen 5 mg/dL (9-20); Calcium 8.5 mg/dL (8.4-10.2); Carbon Dioxide 28 mmol/L (22-30); Chloride 105 mmol/L (98-107); Estimated CRCL calculation 155 ml/min; Estimated Glomerular Filt Rate > 60; Glucose 132 mg/dL (65-110); Potassium 3.6 mmol/L (3.4-5.0); Sodium 138 mmol/L (137-145)
[2021-08-27 06:15] LABS: Hematocrit 36.4 % (42.0-52.0); Hemoglobin 11.8 g/dL (14.0-18.0); Mean Corpuscular HGB Conc 32.4 g/dl (32-36); Mean Corpuscular Hemoglobin 30.7 pg (26-34); Mean Corpuscular Volume 94.8 fl (80-100); Platelet Count Result 129 k/mm3 (150-375); Red Blood Count 3.84 M/mm3 (4.6-6.20); Red Cell Distribution Width 12.3 % (11.5-14.5)
--- NOTE | 2021-08-27 07:11 | PM.PNGS ---
Progress Note: A&P Assessment and Plan (1) Adenocarcinoma of sigmoid colon: Code(s): C18.7 - Malignant neoplasm of sigmoid colon Status: Chronic Assessment and Plan: doing better today- Has active normal bowel sounds and abdominal distension has resolved. Will resume full liquids. Ambulate. Potassium still a little low, will supplement. bruising around incisions and lower abdomen but nothing that will not resolve with time. Possibly home tomorrow. Pathology still pending. Subjective Subjective Date/Time Seen: 08/27/21 07:11 Post Op day: 3 Patient reports: feels better, pain is less ( not having any pain, not requiring narcotic analgesics), flatus, no bowel movement and afebrile Exam Const: General: comfortable and no acute distress; No confusion Orientation/consciousness: patient oriented x3 and No confusion GI: Inspection: abdominal wall ecchymosis ( Lower abdominal midline around hand access port and below), non-distended, incision ( dry and healing, bruising noted.) and obesity GI Palp: Yes Soft to palpation, Yes Tenderness to palpation present (GI) ( minimal tenderness appropriate for postsurgical condition), No Guarding due to palpation present (GI) and No Rebound tenderness present Auscultation: normal bowel sounds ( active normal bowel sounds today) Neuro: General: patient oriented x3, no focal motor deficits and No confusion Extrem: General: no calf tenderness and no edema Psych: Affect: normal affect Insight: Good insight present (Psych) Judgement: Good judgement present (Psych) Objective Data Vital Signs Vital Signs: Vital Signs - 24 hr 08/26/21 08:00 08/26/21 10:00 08/26/21 10:53 Temperature 36.5 C Pulse Rate 86 Respiratory Rate 16 Blood Pressure 183/97 H Pulse Oximetry 96 96 Oxygen Delivery Room Air Room Air 08/26/21 15:22 08/26/21 18:17 08/26/21 19:55 Temperature 36.9 C 36.8 C 37.1 C Pulse Rate 86 84 82 Respiratory Rate 16 16 20 Blood Pressure 175/90 H 126/94 H 166/89 H Pulse Oximetry 97 99 97 Oxygen Delivery 08/26/21 21:57 08/27/21 00:15 08/27/21 03:57 Temperature 37.3 C 36.8 C Pulse Rate 82 82 Respiratory Rate 20 20 Blood Pressure 173/84 H 159/76 H Pulse Oximetry 94 96 95 Oxygen Delivery Room Air Intake/Output Intake/Output: Intake & Output 08/24/21 08/25/21 08/26/21 08/27/21 23:59 23:59 23:59 23:59 Intake Total 2936 3880 1690 0 Balance 2936 3880 1690 0 Meds/Results Medications: Active Medications Generic Name Dose Route Start Last Admin Trade Name Freq PRN Reason Stop Dose Admin Acetaminophen 500 mg 08/24/21 16:39 Acetaminophen 500 Mg Tablet PO Q6H PRN Mild Pain (1-3) or Fever Hydrocodone Bitart/Acetaminophen 1 tab 08/24/21 16:39 08/25/21 18:33 Hydrocodone/Acetaminophen (*Crx) 5-325 Mg Tablet PO 1 tab Q4H PRN Administration Pain Rated 4-6 Hydrocodone Bitart/Acetaminophen 1 tab 08/24/21 16:39 08/25/21 14:30 Hydrocodone/Acetaminophen (*Crx) 10-325 Mg Tablet PO 1 tab Q4H PRN Administration Pain Rated 7-10 Alvimopan 12 mg 08/25/21 21:00 08/26/21 21:59 Alvimopan 12 Mg Capsule PO 09/01/21 20:59 12 mg Q12HR CALEB Administration Enoxaparin Sodium 40 mg 08/25/21 09:00 08/26/21 08:15 Enoxaparin 40 Mg/0.4 Ml Syringe SUB-Q 40 mg DAILY CALEB Administration Famotidine 20 mg 08/25/21 09:00 08/26/21 21:59 Famotidine 20 Mg Tablet PO 20 mg Q12HR CALEB Administration Hydralazine HCl 10 mg 08/26/21 10:53 08/26/21 11:14 Hydralazine Hcl 20 Mg/Ml Vial IV PUSH 10 mg Q8H PRN Administration sys BP>170; burt>105 Potassium Chloride/Dextrose/Sod Cl 1,000 mls @ 80 mls/hr 08/26/21 10:50 08/26/21 22:03 Kcl 40 Meq/D5ns IV CONT 80 mls/hr .[id number] CALEB Administration Morphine Sulfate 2 mg 08/24/21 16:39 08/25/21 03:25 Morphine Sulfate (*Crx) 2 Mg/Ml Inj IV PUSH 2 mg Q2H PRN Administration Pain Rated 4-6 Morphine Sulfate 4 mg
[2021-08-27] MEDS: ALVIMOPAN 12 MG CAPSULE PO ×2 (08:22→21:16)
[2021-08-27] MEDS: FAMOTIDINE 20 MG TABLET PO ×2 (08:22→21:16)
[2021-08-27] MEDS: ENOXAPARIN 40 MG/0.4 ML SYRINGE SUB-Q (08:23)
[2021-08-27] MEDS: ROSUVASTATIN 10 MG TABLET 40 MG PO (08:23)
[2021-08-27] MEDS: POTASSIUM CHLORIDE 20 MEQ TABLET.ER 40 MEQ PO ×2 (08:47→16:18)
[2021-08-28 02:00] VITALS: BP 169/80; PULSE 83; RESP 20; TEMP 37.1; O2SAT 100
[2021-08-28 03:59] VITALS: BP 150/78; PULSE 76; RESP 20; TEMP 36.8; O2SAT 97
[2021-08-28 05:35] LABS: Hematocrit 36.9 % (42.0-52.0); Hemoglobin 12.3 g/dL (14.0-18.0); Mean Corpuscular HGB Conc 33.3 g/dl (32-36); Mean Corpuscular Hemoglobin 30.8 pg (26-34); Mean Corpuscular Volume 92.5 fl (80-100); Mean Platelet Volume 8.9 fl (7.4-10.4); Platelet Count Result 141 k/mm3 (150-375); Red Blood Count 3.99 M/mm3 (4.6-6.20); Red Cell Distribution Width 12.3 % (11.5-14.5); White Blood Count 8.5 K/mm3 (4.5-10.0)
[2021-08-28 05:51] LABS: Anion Gap 5 mmol/L (8-16); Blood Urea Nitrogen 5 mg/dL (9-20); Calcium 8.9 mg/dL (8.4-10.2); Carbon Dioxide 26 mmol/L (22-30); Chloride 106 mmol/L (98-107); Estimated CRCL calculation 155 ml/min; Estimated Glomerular Filt Rate > 60; Glucose 125 mg/dL (65-110); Potassium 4.1 mmol/L (3.4-5.0); Sodium 137 mmol/L (137-145)
[2021-08-28] MEDS: ALVIMOPAN 12 MG CAPSULE PO (08:15)
[2021-08-28] MEDS: POTASSIUM CHLORIDE 20 MEQ TABLET.ER 40 MEQ PO (08:15)
[2021-08-28] MEDS: FAMOTIDINE 20 MG TABLET PO (08:16)
[2021-08-28] MEDS: ENOXAPARIN 40 MG/0.4 ML SYRINGE SUB-Q (08:16)
[2021-08-28] MEDS: ROSUVASTATIN 10 MG TABLET 40 MG PO (08:16)
--- NOTE | 2021-08-28 09:18 | PM.DS ---
DS: Admitting Diagnosis Discharge Date 08/28/2021 Admitting Diagnosis adenocarcinoma of the sigmoid colon DS: Discharge Diagnosis Discharge Diagnosis (1) Adenocarcinoma of sigmoid colon: Code(s): C18.7 - Malignant neoplasm of sigmoid colon Status: Chronic Assessment and Plan: pathology shows a small pT3,N2a adenocarcinoma of the sigmoid with negative margins at the time of surgery. Dr. De La Cruz will discuss further recommended therapy at the patient's outpatient visit. (2) GERD (gastroesophageal reflux disease): Code(s): K21.9 - Gastro-esophageal reflux disease without esophagitis Status: Acute Assessment and Plan: Continue home meds or [id number] meds as needed for this. Encouraged weight loss as a way to help reduce problems with this. (3) Obesity (BMI 30-39.9): Code(s): E66.9 - Obesity, unspecified Status: Acute Assessment and Plan: Encouraged a soft low-fat diet at home. Plan Discharge today Encouraged patient to take MiraLax once every 12 hours should he go more than 24 hours without a bowel movement. DS: Summary Hospital Course Reason for hospitalization: Patient the had a rather uneventful hospital course. He had a hand assisted left colon resection with anastomosis. He seemed to progress fairly well but had a small setback day or 2 prior to discharge with onset of an ileus and several days of no bowel movement. This resolved itself by cutting back on his diet and going back to IV fluids for 24 hours. Now over the last 2 days he has had several bowel movements each day. Labs look good on the day of discharge. No problems with the wounds during his hospital stay. Hospital Course: less than 30 minutes Status at Discharge Cognitive/behavioral status at discharge: time spent with patient patient day of discharge Less than 30 minutes. status at discharge is improved. He still will gradually increase his activity because of his incisions. Functional status at discharge: independent ambulation Overall status at discharge: patient is not back to baseline ( Will need to not lift anything greater than 25 lb and gradually increase his walking) Time Spent with Patient Time attestation: Total time spent providing and/or coordinating discharge services: Time spent: Less than 30 minutes Specific discharge activities: gradually walk more more each day Okay to go up and down steps 1 at a time Stick with a soft diet for 2 or 3 days until bowel movements have become routine. Patient will use [id number] Tylenol or ibuprofen for pain at home. Exam Const: General: cooperative, comfortable, alert and awake Orientation/consciousness: patient oriented x3 HENMT: Head: normal to inspection Mouth: Yes moist mucous membranes Eyes: Sclera: sclerae normal Pupils: Equal, round and reactive pupils present Neck: Neck: normal visual inspection Chest: Chest palpation & inspection: normal inspection of the chest Resp: Effort & Inspection: normal respiratory effort Cardio: Rate: regular rate GI: Inspection: incision ( Some bruising around midline incision but no signs of infection.) Auscultation: normal bowel sounds Rectal Exam: deferred Other: port site incisions well sealed and surgical glue still in place. Neuro: General: patient oriented x3 Cranial nerves: Yes Equal, round and reactive pupils present DS: Data Data Completed and Pending Completed studies during hospitalization: Pending at discharge 08/24/21 13:54 Surgical [PTH] Routine Labs on day of discharge: Labs from last 24 hours 08/28/21 08/28/21 04:52 04:52 WBC 8.5 RBC 3.99 L Hgb 12.3 L Hct 36.9 L MCV 92.5 MCH 30.8 MCHC 33.3 RDW 12.3 Plt Count 141 L MPV 8.9 Sodium 137 Potassium 4.1 Chloride 106 Carbon Dioxide 26 Anion Gap 5 L BUN 5 L Creatinine 0.60 L Estim Creat Clear Calc 155 Estimated GFR > 60 Glucose 125
== END 2021-08-28 12:10 | disposition home or self-care (01) | DRG 330 ==
LOC: ANH2MED 08-27 09:20
PROVIDERS: Admitting Provider Surgery; PCP Internal Medicine; Visit Provider Surgery
PROC: 0D1E4Z4 Bypass Large Intestine to Cutaneous, Percutaneous Endoscopic Approach (ICD-10-PCS; principal; 2021-08-24 12:00)
DX: C18.7 Malignant neoplasm of sigmoid colon (principal); K56.7 Ileus, unspecified; K21.9 Gastro-esophageal reflux disease without esophagitis; E66.9 Obesity, unspecified; E78.5 Hyperlipidemia, unspecified; Z87.891 Personal history of nicotine dependence; Z68.37 Body mass index [BMI] 37.0-37.9, adult
CPT/HCPCS: 36415; 74019; 80048; 85027; 88309; A9270; C1729; J0360; J0690; J1100; J1170; J1650; J1885; J2250; J2270; J2405; J2704; J3010; J3480; J7030; J7120

== ENCOUNTER 2021-09-20 16:00 | Outpatient (CLI) | payer BC, SELFPAY ==
--- NOTE | ~2021-09-20 | CT_ITS ---
EXAMINATION: CT diagnostic chest w con DATE: 09/20/2021 16:31 INDICATION: Malignant neoplasm of sigmoid colon TECHNIQUE: Computed tomography (CT) of the chest was performed with 75 CC Omnipaque 350 intravenous c ontrast. Automated exposure control and iterative reconstruction technique were employed. Exam dose: 460.63 mGy-cm total exam DLP. COMPARISON: 07/22/2021 CT abdomen pelvis FINDINGS: Normal heart size. No thoracic aortic aneurysm. No hilar or mediastinal mass lesion or lymp hadenopathy. No pericardial or pleural effusion. Normal morphology of the adrenal glands included upper abdominal structures are unremarkable. Prominent degenerative spurring of the lower thoracic spine. No suspicious osteolytic or osteoblastic lesions are noted. No pulmonary infiltrate or consolidation or suspicious pulmonary mass lesion. IMPRESSION: No significant abnormality; no metastatic disease is detected Reviewed, dictated and finalized at [facility]. Reviewed, dictated and finalized at [facility].
== END 2021-09-20 16:01 | disposition home or self-care (01) ==
PROVIDERS: PCP Internal Medicine; Visit Provider Internal Medicine Hematology & Oncology
DX: C18.7 Malignant neoplasm of sigmoid colon (principal)
CPT/HCPCS: 71260; Q9967

== ENCOUNTER 2021-09-24 01:21 | Day surgery (SDC) | payer BC, SELFPAY ==
[2021-09-20 14:25] VITALS: BMI 36.0
--- NOTE | 2021-09-20 14:29 | PC.NURSE ---
Report to the Outpatient Waiting Room, entrance under the green pavilion located off [facility], at time _0730_ on date _[id number]_. OR Time: _0930_. - You and your visitor will be asked a series of questions to screen for COVID 19 for your protection. - Only one visitor is allowed at this time. - The patient visitor is requested to leave or wait in car when not with patient. - A mask is required within the hospital. Patients may have clear liquids (water, carbonated beverages, clear teas, apple juice) until 3 hours prior to surgery with a maximum of 20 ounces. - No food from midnight until time of surgery Take the following medications with a SIP of water the morning of surgery: ___None Medications to discontinue per physician ____None Date to take last dose Please no make-up, nail citizen of [place], hairspray, perfume, deodorant, or body powder the day of surgery. No jewelry (including any body piercings) or valuables the day of surgery, leave them at home. Please take a shower or bath the night before, or the morning of, surgery with an antibacterial soap. Wear comfortable, loose fitting clothing. - Jewelry must be removed prior to entering the operating room. Rings and piercings that are not removed may be cut off. - The hospital will not accept responsibility for valuables. - Please leave all valuables, including medications, at home the day of surgery. If you are going home after surgery, a licensed trailer tank truck driver must drive you home. - NO public transportation without another adult. - We recommend that an adult stay with you for 24 hours following discharge. - We also recommend that you do not drive, make important decision, drink alcoholic beverages, or take any drugs that were not prescribed by your health care provider for at least 24 hours after your discharge time. Follow any additional instructions given to you from your surgeon. If you or anyone in your household have experienced Covid symptoms in the past week, please notify your surgeon or the nurse liaison at the phone number below for possible testing. Telephone instructions given to __Patient and asked if any additional questions and then verbalized understanding. Patient advised to call surgeon office or pre surgery nurse liaison [phone] if any additional questions.
--- NOTE | ~2021-09-24 | XR_ITS ---
XR fl guide central line place 09/24/2021 08:26 Indication: Port catheter placement Procedure: Single fluoroscopic images of the left chest. 78 seconds of fluoroscopy. Comparison: No prior studies for comparison. Findings: There is a left subclavian gregorio catheter, distal tip not evaluated. Visualized lung parenc hyma is unremarkable. Impression: 1: Status post recent portacatheter placement. Reviewed, dictated and finalized at location A. Impression: 1: Status post recent portacatheter placement.
--- NOTE | ~2021-09-24 | XR_ITS ---
XR chest port-a-cath/central 09/24/2021 08:44 Indication: Insertion of portacatheter Procedure: AP portable chest Comparison: No prior studies for comparison. Findings: Left subclavian gregorio catheter tip in the SVC. Heart size normal. No focal air space diseas e, pulmonary edema, pleural effusion or suspected pneumothorax. Mild pulmonary vascular congestion. Impression: 1: No acute cardiopulmonary disease. Reviewed, dictated and finalized at location A. Impression: 1: No acute cardiopulmonary disease.
--- NOTE | 2021-09-24 06:30 | WPDANESEPPF ---
Anes - Initial Pre Proc Eval Procedure: Operation Date: 09/24/21 07:30 Proposed Procedures p Insertion Jeanette Cath - Allen De La Cruz MD Date/Time: 09/24/21 06:30 Surgeon: Allen De La Cruz MD Pre Op Diagnosis: Sigmoid Colon Cancer Patient Data Age: 55 Gender: M Height: 1.83 m Weight: 121.3 kg Allergies Allergy/AdvReac Type Severity Reaction Status Date / Time No Known Allergies Allergy Verified 09/24/21 06:22 Home Medications Medication Instructions Recorded Confirmed Type folic acid 1 mg tablet 1 mg PO QAM 06/25/21 09/24/21 History rosuvastatin 40 mg tablet 40 mg PO QAM 06/25/21 09/24/21 History Patient hx anesthesia problems: none Family hx anesthesia problems: none Results Review: All pre-operative results and documents have been reviewed as part of the pre-operative evaluation. [facility] Past Medical History Medical History Colon cancer Hyperlipidemia Obesity Surgical History Surgical History H/O colonoscopy History of colon resection sigmoid colon resection 08/24/21 [place] teeth extracted Family History Family History Father Heart disease Lung cancer Social History Social History Smoking packs per day: 1 Smoking cigarettes per day: 20.0 Years smoked: 5 Smoking pack-years: 5.00 Smoking status: Former smoker Tobacco type: cigarettes Second hand tobacco smoke exposure: No Smoking end date: 09/21/95 Alcohol intake: current Drinks per week: 7 Alcohol use details: 4-6 drinks/day most days Substance use: never Substance use type: does not use Living arrangements: with family 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 Informed Consent: The patient's anesthetic plan and its attendant risks and benefits were discussed with the patient/family/POA. Questions were solicited and answers provided to the satisfaction of the patient/family/POA.
[2021-09-24] MEDS: LACTATED RINGERS 1,000 ML 30 ML IV CONT (06:33)
[2021-09-24] MEDS: KETOROLAC 15 MG/ML VIAL (*BKC) IV PUSH (06:33)
[2021-09-24 06:55] VITALS: BP 166/88; PULSE 85; RESP 18; TEMP 36.3; O2SAT 97
[2021-09-24 06:58] LABS: Partial Thromboplastin Time 26.1 SECONDS (22.3-36.8); Prothrombin Time 12.8 Seconds (11.1-14.7)
--- NOTE | 2021-09-24 07:14 | WPDHPUPDATE1 ---
History and Physical Update Update Date/Time: 09/24/21 07:14 History and Physical has been reviewed, including an updated exam of the patient. There are NO changes in the patient's condition. Risks, benefits, and alternatives have been discussed and questions answered. Patient agrees to proceed with procedure.
[2021-09-24] MEDS: ceFAZolin 3 GM/D5W 100 ML 100 ML IVPB (07:30)
[2021-09-24] MEDS: BUPIVACAINE/EPINEPHRINE 0.25% 50 ML VIAL INFILTRATE (07:53)
[2021-09-24] MEDS: HEPARIN SODIUM 1,000 UNITS/ML VIAL 1000 UNITS IV PUSH (07:54)
[2021-09-24 08:25] VITALS: BP 148/82; PULSE 76; RESP 16; O2SAT 98
--- NOTE | 2021-09-24 08:25 | P.OP_ITS ---
Procedure Note - Detailed Date of Procedure 09/24/21 Pre-op Diagnosis Sigmoid Colon Cancer, inadequate venous access Post-op Diagnosis Same Procedure Performed Placement left subclavian vortex Port-A-Cath under fluoroscopy Surgeon Allen De La Cruz MD Fender Repairer Evette CRONELIUS Anesthesia General (G IV S) and Local (0.25% bupivacaine with epinephrine) Indications Patient has stage III sigmoid colon cancer and is planned to have chemotherapy. We were asked by his oncologist to place a Port-A-Cath for better access for chemotherapy administration. Findings Tip of the Port-A-Cath was in the distal sub superior vena cava. There were no kinks or twists in the tubing on fluoroscopy. Description of Procedure Patient was taken to surgery and anesthesia was introduced. The left subclavian and left neck areas were prepped and draped. The proposed left subclavian incision was marked on the skin. Local anesthetic was infiltrated into the skin and the deeper subcutaneous tissues. Incision was made dissection was carried down through the subcutaneous. Crossing veins were cauterized and divided. We continued our dissection through the pectoralis major fascia. The fascia was then elevated and a subfascial pocket was created below the incision. More local was infiltrated into the pectoralis major muscle and under the left clavicle. A single puncture was used to cannulate the left subclavian vein. A guidewire passed readily into the superior vena cava. Its position was documented by fluoroscopy. I then used fluoroscopy to measure the estimated length of Port-A-Cath that would be needed. It was cut to the appropriate length. The introducer and sleeve were then passed over the guidewire. The guidewire and introducer were removed. The end of the Port-A-Cath was passed through the sleeve and into the superior vena cava. We checked this position before removing the sleeve. The sleeve was then removed. We again checked the Port-A-Cath position which was good. I checked the Port-A-Cath. It aspirated blood and irrigated easily with heparin. I sutured the Port-A-Cath to the pectoralis major muscle with 3-0 silk. I again checked the Port-A-Cath and it aspirated blood and flushed easily with heparin. We then closed the pocket in layers with 2-0 running Vicryl suture. The skin was closed with running 4-0 Monocryl skin suture. Wound was dressed with Exofin surgical adhesive. Patient was awakened and taken to outpatient surgery in good condition. Sponge needle counts were correct x2. Implants Vortex Port-A-Cath left subclavian position Estimated Blood Loss -5 Drains No Packing No Pathology None sent Complications No immediate complications Condition Stable Disposition Same day [facility] Billing Surgery - Charge Forward: Surgery Billing (Placement Port-A-Cath under fluoroscopy)
[2021-09-24 09:08] VITALS: BP 134/75; PULSE 65; RESP 16
[2021-09-24 09:15] VITALS: BP 130/72; PULSE 68; RESP 16
== END 2021-09-24 09:25 | disposition home or self-care (01) ==
PROVIDERS: PCP Internal Medicine; Visit Provider Surgery
PROC: (CPT 36561; principal; 2021-09-24 07:30)
DX: C18.7 Malignant neoplasm of sigmoid colon (principal); E78.5 Hyperlipidemia, unspecified; E66.9 Obesity, unspecified; Z68.36 Body mass index [BMI] 36.0-36.9, adult; Z87.891 Personal history of nicotine dependence
CPT/HCPCS: 36561; 36415; 77001; 85610; 85730; C1788; J0690; J1644; J1885; J2250; J2704; J3010; J7120

== ENCOUNTER 2022-01-07 07:43 | Outpatient (CLI) | payer BC, SELFPAY ==
--- NOTE | ~2022-01-07 | XR_ITS ---
EXAMINATION: XR fl port a cath w contrast DATE: 01/07/2022 08:22 INDICATION: Port dysfunction. TECHNIQUE: I performed fluoroscopy of the chest wall while the port catheter was injected with water- soluble contrast. Fluoroscopy exposure time was 0.3 minutes. The number of images was 361. COMPARISON: Chest CT 09/20/2021 FINDINGS: There is a left subclavian port with tip in superior vena cava. Contrast collects around th e tip of the catheter and exits the area of the port tip to the left, almost perpendicular to the cat heter. IMPRESSION: 1. Fibrin sheath around the port tip. Reviewed, dictated and finalized at location A.
== END 2022-01-07 07:44 | disposition home or self-care (01) ==
PROVIDERS: PCP Internal Medicine; Visit Provider Internal Medicine Hematology & Oncology
DX: C18.7 Malignant neoplasm of sigmoid colon (principal)
CPT/HCPCS: 36598; Q9966

== ENCOUNTER 2022-04-13 08:03 | Outpatient (CLI) | payer BC, SELFPAY ==
--- NOTE | ~2022-04-13 | CT_ITS ---
Clinical Indication: Colon cancer CT Scan of the Chest, Abdomen, and Pelvis with Contrast: Technique: Contiguous sections were acquired throughout the chest, abdomen, and pelvis after intraven ous administration of 100 cc of Omnipaque 350. Dose reduction technique was used on this scan by arielle florentinoing automated exposure control and iterative reconstruction technique. The dose-length product (DL P) was 1818.64 mGy-cm. COMPARISON: 09/20/2021 and 07/22/2021 Findings: There is no evidence of any significant mediastinal, hilar or axillary lymphadenopathy. The mediastin al soft tissues and vascular structures appear normal. There is no evidence of pleural or pericardial effusion. The lungs are clear. No pulmonary nodules or infiltrates are noted. The liver, spleen, pancreas, gallbladder, adrenals and kidneys are within normal limits. No evidence of aortic aneurysm. No lymphadenopathy. No bowel obstruction or bowel wall thickening. Rectosigmoid anastomosis noted. There is no evidence t o suggest acute appendicitis. Mild wall thickening urinary bladder is probably due to underdistention. No pelvic mass evident. No a scites. Impression: No evidence for active malignancy or metastatic disease. Rectosigmoid anastomosis present. Reviewed, dictated and finalized at [facility]. R DIPPER Impression: No evidence for active malignancy or metastatic disease. Rectosigmoid anastomosis present.
== END 2022-04-13 08:04 | disposition home or self-care (01) ==
PROVIDERS: PCP Internal Medicine; Visit Provider Internal Medicine Hematology & Oncology
DX: C18.7 Malignant neoplasm of sigmoid colon (principal); Z93.1 Gastrostomy status
CPT/HCPCS: 71260; 74177; Q9967

== ENCOUNTER → 2022-04-26 15:45 | Outpatient (CLI) | payer BC, SELFPAY ==
--- NOTE | ~2022-04-26 | US_ITS ---
EXAMINATION: US right upper quadrant DATE: 04/26/2022 16:07 INDICATION: Increased liver function TECHNIQUE: Multiple grayscale and Doppler ultrasound images of the right upper quadrant were obtained . COMPARISON: None available. FINDINGS: Suboptimal visualization of the pancreas due to overlying bowel gas. The liver is normal wi th increased echogenicity and normal echotexture. No surface nodularity. Normal hepatopetal flow in t he main portal vein. The gallbladder is normal with no abnormal wall thickening, pericholecystic flui d or stones. The common bile duct measures 5 mm. There was no sonographic Moreno sign. IMPRESSION: Echogenic liver, most commonly due to steatosis but also can be seen with hepatitis and fibrosis. Poo r visualization of the pancreas. Otherwise normal right upper quadrant ultrasound findings. Reviewed, dictated and finalized at location K. R CUTTER IMPRESSION: Echogenic liver, most commonly due to steatosis but also can be seen with hepat itis and fibrosis. Poor visualization of the pancreas. Otherwise normal right u pper quadrant ultrasound findings.
== END ==
PROVIDERS: PCP Internal Medicine; Visit Provider Internal Medicine
DX: R94.5 Abnormal results of liver function studies (principal)
CPT/HCPCS: 76705

== ENCOUNTER 2022-07-20 00:39 | Day surgery (SDC) | payer BC, SELFPAY ==
[2022-07-08 14:20] VITALS: BMI 37.3
--- NOTE | 2022-07-19 11:58 | P.PNAN_ITS ---
Anes - Initial Pre Proc Eval Procedure: Operation Date: 07/20/22 07:30 Proposed Procedures p Colonoscopy - Heriberto Mai MD Date/Time: 07/19/22 11:58 Surgeon: Heriberto Mai MD Pre Op Diagnosis: colon ca Patient Data Age: 56 Gender: M Height: 1.83 m Weight: 125 kg Allergies Allergy/AdvReac Type Severity Reaction Status Date / Time No Known Allergies Allergy Verified 07/20/22 06:29 Home Medications Medication Instructions Recorded Confirmed Type lidocaine-prilocaine 2.5 %-2.5 % See Rx Instructions .Route .COMPLEX 01/05/22 07/20/22 History topical cream aspirin 325 mg tablet 325 mg PO DAILY 01/28/22 07/20/22 History Patient hx anesthesia problems: none Family hx anesthesia problems: none Results Review: All pre-operative results and documents have been reviewed as part of the pre- operative evaluation. [facility] Past Medical History Medical History Colon cancer Hyperlipidemia Obesity Surgical History Surgical History H/O colonoscopy History of colon resection sigmoid colon resection 08/24/21 [place] teeth extracted Family History Family History Father Heart disease Lung cancer Social History Social History Smoking packs per day: 1 Smoking cigarettes per day: 20.0 Years smoked: 5 Smoking pack-years: 5.00 Smoking status: Former smoker Tobacco type: cigarettes Second hand tobacco smoke exposure: No Smoking end date: 03/27/95 Alcohol intake: current Drinks per week: 12 Alcohol use details: 4-6 drinks/day most days Substance use: never Substance use type: does not use Living arrangements: with family Occupation/Education: occupation 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 Informed Consent: The patient's anesthetic plan and its attendant risks and benefits were discussed with the patient/family/POA. Questions were solicited and answers provided to the satisfaction of the patient/family/POA.
--- NOTE | 2022-07-19 15:20 | PM.HPGS ---
History of Present Illness History of Present Illness Consent: Risks, benefits, and alternatives have been discussed and questions answered. Patient agrees to proceed with procedure. Chief complaint: colon ca Narrative: Valentin Crow Jr. is a 56 year old male who had a carcinoma of sigmoid colon that was found and resected 1 year ago. At that time he also had an adenomatous polyp in the descending colon removed. Review of Systems Review of Systems: All systems reviewed & are unremarkable except as noted in HPI and below PMFSH Past Medical History Medical History Colon cancer Hyperlipidemia Obesity Surgical History Surgical History H/O colonoscopy History of colon resection sigmoid colon resection 08/24/21 [place] teeth extracted Family History Family History Father Heart disease Lung cancer Social History Social History Smoking packs per day: 1 Smoking cigarettes per day: 20.0 Years smoked: 5 Smoking pack-years: 5.00 Smoking status: Former smoker Tobacco type: cigarettes Second hand tobacco smoke exposure: No Smoking end date: 03/27/95 Alcohol intake: current Drinks per week: 12 Alcohol use details: 4-6 drinks/day most days Substance use: never Substance use type: does not use Living arrangements: with family Occupation/Education: occupation 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 Gender identity (if verbalized by the patient): Male Spiritual care concerns: No Meds Home Medications and Allergies Home Medications Medication Instructions Recorded Confirmed Type lidocaine-prilocaine 2.5 %-2.5 % See Rx Instructions .Route .COMPLEX 01/05/22 07/20/22 History topical cream aspirin 325 mg tablet 325 mg PO DAILY 01/28/22 07/20/22 History Allergies Allergy/AdvReac Type Severity Reaction Status Date / Time No Known Allergies Allergy Verified 07/20/22 06:29 Exam Resp: Auscultation: clear to auscultation bilaterally Cardio: Rate: regular rate Rhythm: regular rhythm GI: GI Palp: Yes Soft to palpation and No Tenderness to palpation present (GI) Assessment and Plan Assessment and plan (1) Colon cancer screening: Code(s): Z12.11 - Encounter for screening for malignant neoplasm of colon Status: Acute Assessment and Plan: Colonoscopy with possible biopsy or polypectomy or cautery or injection of substances.
[2022-07-20 06:20] VITALS: BP 143/88; PULSE 73; RESP 18; TEMP 36.3; O2SAT 97; BMI 36.2
[2022-07-20] MEDS: LACTATED RINGERS 1,000 ML 150 ML IV CONT (06:40)
[2022-07-20] MEDS: SIMETHICONE ORAL SUSPENSION 20 MG/0.3 ML 30 ML BOTTLE 0.6 ML IRRIGATION (07:36)
[2022-07-20 07:42] VITALS: BP 116/73; PULSE 66; RESP 16; O2SAT 95
[2022-07-20 07:52] VITALS: BP 119/71; PULSE 64; RESP 22; O2SAT 95
[2022-07-20 08:02] VITALS: BP 127/83; PULSE 64; RESP 14; O2SAT 98
== END 2022-07-20 08:07 | disposition home or self-care (01) ==
PROVIDERS: PCP Internal Medicine; Visit Provider Internal Medicine Gastroenterology
PROC: 0DJD8ZZ Inspection of Lower Intestinal Tract, Via Natural or Artificial Opening Endoscopic (ICD-10-PCS; CPT 45378; principal; 2022-07-20 07:30)
DX: Z12.11 Encounter for screening for malignant neoplasm of colon (principal); K64.8 Other hemorrhoids; K57.30 Diverticulosis of large intestine without perforation or abscess without bleeding; Z98.0 Intestinal bypass and anastomosis status; Z90.49 Acquired absence of other specified parts of digestive tract; Z85.038 Personal history of other malignant neoplasm of large intestine; Z86.010 Personal history of colon polyps; Z87.891 Personal history of nicotine dependence; E66.9 Obesity, unspecified; Z68.36 Body mass index [BMI] 36.0-36.9, adult; Z79.82 Long term (current) use of aspirin
CPT/HCPCS: 45378; J2704; J7120

== ENCOUNTER 2022-11-29 16:00 | Outpatient (CLI) | payer BC, SELFPAY ==
--- NOTE | ~2022-11-29 | CT_ITS ---
EXAMINATION: CT abdomen pelvis w con INDICATION: Malignant neoplasm of the sigmoid colon TECHNIQUE: Computed tomographic images of the abdomen and pelvis were obtained after the administrati on of 100 cc of Omnipaque 350 intravenous contrast. The dose-length product (DLP) was 1326.97 mGy-cm. Automated exposure control and iterative reconstruction technique were employed. COMPARISON: 04/13/2022 FINDINGS: Minimal dependent atelectasis is present in the lung bases. The heart size is normal. The l iver, spleen, pancreas, gallbladder, and adrenal glands are normal. Cysts of the right kidney measure up to 2.1 cm. The left kidney is unremarkable. No pathologically enlarged abdominal or pelvic lymph nodes are identified. No free intraperitoneal gas or evidence of bowel obstruction. A surgical anasto mosis is present at the rectosigmoid junction. Colonic diverticulosis is present without evidence of diverticulitis. There is circumferential wall thickening of the urinary bladder. There is severe lumb ar spondylosis. IMPRESSION: 1. No evidence of metastatic disease. 2. Chronic wall thickening in the urinary bladder, consistent with cystitis versus chronic outlet obs truction. Reviewed, dictated and finalized at location B. IMPRESSION: 1. No evidence of metastatic disease. 2. Chronic wall thickening in the urinary bladder, consistent with cystitis ander pablo chronic outlet obstruction.
== END 2022-11-29 16:01 | disposition home or self-care (01) ==
PROVIDERS: PCP Internal Medicine; Visit Provider Internal Medicine Hematology & Oncology
DX: C18.7 Malignant neoplasm of sigmoid colon (principal); R93.41 Abnormal radiologic findings on diagnostic imaging of renal pelvis, ureter, or bladder
CPT/HCPCS: 74177; Q9967

== ENCOUNTER 2022-12-22 00:56 | Day surgery (SDC) | payer BC, SELFPAY ==
[2022-12-15 15:12] VITALS: BMI 34.2
--- NOTE | 2022-12-15 15:16 | PC.NURSE ---
Report to the Outpatient Waiting Room, entrance under the green pavilion located off [facility], at time 0800 on date 12/22/22. Planned Procedure Time: 1000. Time changes happen often and if your time is changed the preop area will call you the afternoon before. - You and your visitor will be asked to self-screen and do not enter if you have any COVID symptoms. - A mask is optional within the hospital at this time. Patients may have clear liquids (water, carbonated beverages, clear teas, apple juice) until 3 hours prior to surgery with a maximum of 20 ounces. - No food from midnight until time of surgery Take the following medications with a SIP of water the morning of surgery: NONE DO NOT STOP ANY OF YOUR OTHER PRESCRIPTION MEDICATIONS PRIOR TO SURGERY ?EXCEPT THE FOLLOWING Medications to discontinue per physician: N/A Date to take last dose: N/A Please no make-up, nail kiswahili, hairspray, perfume, deodorant, or body powder the day of surgery. No jewelry (including any body piercings) or valuables the day of surgery, leave them at home. Please take a shower or bath the night before, or the morning of, surgery with an antibacterial soap. Wear comfortable, loose fitting clothing. - Jewelry must be removed prior to entering the operating room. Rings and piercings that are not removed may be cut off. - The hospital will not accept responsibility for valuables. - Please leave all valuables, including medications, at home the day of surgery. If you are going home after surgery, a licensed tractor trailer driver must drive you home. - NO public transportation without another adult if you receive anesthesia. - We recommend that an adult stay with you for 24 hours following discharge. - We also recommend that you do not drive, make important decision, drink alcoholic beverages, or take any drugs that were not prescribed by your health care provider for at least 24 hours after your discharge time. Follow any additional instructions given to you from your surgeon. If you or anyone in your household have experienced Covid symptoms in the past week, please notify your surgeon or the nurse liaison at the phone number below for possible testing. Telephone instructions given to PT - JOHANNE Capone and asked if any additional questions and then verbalized understanding. Patient advised to call surgeon office or pre surgery nurse liaison [phone] if any additional questions.
--- NOTE | 2022-12-22 07:26 | P.HP_ITS ---
H&P: HPI History of Present Illness Date/Time: 12/22/22 07:26 Chief Complaint: colon cancer Narrative: Pt is a 56 y/o M s/p sigmoid colon resection and subsequent adjuvant chemotherapy for stage 3 sigmoid colon cancer. Pt had L sided VAD placed in 10/15 for chemo access. Pt has completed all cycles and surveillance colonoscopy did not show any recurrent disease. Patient now here for port removal. Review of Systems Review of Systems: All systems reviewed & are unremarkable except as noted in HPI and below PMFSH Past Medical History Medical History Colon cancer Hyperlipidemia Obesity Surgical History Surgical History H/O colonoscopy History of colon resection sigmoid colon resection 08/24/21 [place] teeth extracted Family History Family History Father Heart disease Lung cancer Social History Social History Smoking packs per day: 0.75 Smoking cigarettes per day: 15.0 Years smoked: 7 Smoking pack-years: 5.25 Smoking status: Former smoker Tobacco type: cigarettes Second hand tobacco smoke exposure: No Smoking end date: 03/27/92 Alcohol intake: current Drinks per week: 12 Alcohol use details: 4-6 drinks/day most days Substance use: never Substance use type: does not use Living arrangements: with family Occupation/Education: occupation 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 Gender identity (if verbalized by the patient): Male Spiritual care concerns: No Meds Home Medications and Allergies Home Medications Medication Instructions Recorded Confirmed Type rosuvastatin 40 mg tablet 40 mg PO DAILY 12/15/22 12/15/22 History Allergies Allergy/AdvReac Type Severity Reaction Status Date / Time No Known Allergies Allergy Verified 12/15/22 15:11 Exam Const: General: cooperative, comfortable and no acute distress Neck: Neck: normal visual inspection, full ROM and no lymphadenopathy Chest: Other: L sided VAD - C/D/I Resp: Auscultation: clear to auscultation bilaterally Cardio: Rate: regular rate Rhythm: regular rhythm GI: Inspection: normal to inspection Assessment and Plan Assessment and plan (1) Adenocarcinoma of sigmoid colon: Code(s): C18.7 - Malignant neoplasm of sigmoid colon Status: Chronic Assessment and Plan: status posts successful completion adjuvant chemotherapy, will remove port at this time
--- NOTE | 2022-12-22 07:30 | WPDHPUPDATE1 ---
History and Physical Update Update Date/Time: 12/22/22 07:30 History and Physical has been reviewed, including an updated exam of the patient. There are NO changes in the patient's condition. Risks, benefits, and alternatives have been discussed and questions answered. Patient agrees to proceed with procedure.
[2022-12-22 08:48] VITALS: BP 148/79; PULSE 72; RESP 18; TEMP 36.8; O2SAT 96
--- NOTE | 2022-12-22 08:51 | WPDANESEPPF ---
Anes - Initial Pre Proc Eval Procedure: Operation Date: 12/22/22 10:00 Proposed Procedures p Jeanette Cath Removal - Karolyn Montejo MD Date/Time: 12/22/22 08:51 Surgeon: Karolyn Montejo MD Pre Op Diagnosis: malignant neoplasm of sigmoid colon Patient Data Age: 56 Gender: M Height: 1.83 m Weight: 117.9 kg Last Vital Signs Temp 36.8 C 12/22/22 08:48 Pulse 72 12/22/22 08:48 Resp 18 12/22/22 08:48 BP 148/79 H 12/22/22 08:48 Pulse Ox 96 12/22/22 08:48 O2 Del Method Room Air 12/22/22 08:48 Allergies Allergy/AdvReac Type Severity Reaction Status Date / Time No Known Allergies Allergy Verified 12/15/22 15:11 Home Medications Medication Instructions Recorded Confirmed Type rosuvastatin 40 mg tablet 40 mg PO DAILY 12/15/22 12/15/22 History Patient hx anesthesia problems: none Family hx anesthesia problems: none Results Review: All pre-operative results and documents have been reviewed as part of the pre-operative evaluation. [facility] Past Medical History Medical History Colon cancer Hyperlipidemia Obesity Surgical History Surgical History H/O colonoscopy History of colon resection sigmoid colon resection 08/24/21 [place] teeth extracted Family History Family History Father Heart disease Lung cancer Social History Social History Smoking packs per day: 0.75 Smoking cigarettes per day: 15.0 Years smoked: 7 Smoking pack-years: 5.25 Smoking status: Former smoker Tobacco type: cigarettes Second hand tobacco smoke exposure: No Smoking end date: 03/27/92 Alcohol intake: current Drinks per week: 12 Alcohol use details: 4-6 drinks/day most days Substance use: never Substance use type: does not use Living arrangements: with family Occupation/Education: occupation 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 Informed Consent: The patient's anesthetic plan and its attendant risks and benefits were discussed with the patient/family/POA. Questions were solicited and answers provided to the satisfaction of the patient/family/POA.
[2022-12-22] MEDS: LACTATED RINGERS 1,000 ML 30 ML IV CONT (08:57)
[2022-12-22] MEDS: ceFAZolin 2 GM/D5W 50 ML 2 GM/50 ML BAG IVPB (09:08)
[2022-12-22] MEDS: BUPIVACAINE/EPINEPHRINE 0.5% 50 ML VIAL 20 ML INFILTRATE (09:22)
[2022-12-22 09:37] VITALS: BP 115/58; PULSE 74; RESP 14; O2SAT 95
--- NOTE | 2022-12-22 09:41 | P.OP_ITS ---
Procedure Note - Detailed Date of Procedure 12/22/22 Pre-op Diagnosis malignant neoplasm of sigmoid colon Post-op Diagnosis Same Procedure Performed removal L chest VAD Surgeon Karolyn Montejo MD Anesthesia MAC and Local Indications 56 y/o M s/p treatment for sigmoid colon cancer. Pt had L sided VAD placed abo ut a year ago. Findings L SCV VAD Description of Procedure The patient was taken to the operating room and placed in the supine position. After induction of MAC anesthesia, the patient was then prepped and draped in the normal sterile fashion. A time-out was then done to verify the patient's identity, as well as the procedure being performed. I began by localizing the area of the previously placed port in the left chest. After the area was adequately anesthetized, I made an incision through the previous incision to gain access to the port in the subcutaneous tissue. I was then able to identify the port and using dissection with the Bovie cautery, I was able to free the reservoir from the subcutaneous pocket. The reservoir was being held in by 2 sutures and these were subsequently cut. I was then able to remove the reservoir from the pocket. I then removed the catheter from the left subclavian vein in full. I then held pressure at the level the left subclavian vein for approximately 5 minutes. Hemostasis was noted and I irrigated the pocket. I then closed the subcutaneous tissue with 3-0 Vicryl suture. The skin was closed with 4-0 Monocryl subcuticular suture. Dermabond was placed on the wound. The patient tolerated the procedure well and was alert and awake in the operating room postoperative. The patient will be sent to the recovery room in stable condition. Estimated Blood Loss 5 Drains No Packing No Pathology None sent Complications No immediate complications Condition Stable Disposition PACU [facility] Billing Surgery - Charge Forward: Surgery Billing
[2022-12-22 09:55] VITALS: BP 113/60; PULSE 72; RESP 16
[2022-12-22 10:25] VITALS: BP 121/62; PULSE 63; RESP 16
== END 2022-12-22 10:34 | disposition home or self-care (01) ==
PROVIDERS: PCP Internal Medicine; Visit Provider Surgery
PROC: (CPT 36589; principal; 2022-12-22 10:00)
DX: Z45.2 Encounter for adjustment and management of vascular access device (principal); Z85.038 Personal history of other malignant neoplasm of large intestine; Z92.21 Personal history of antineoplastic chemotherapy; Z90.49 Acquired absence of other specified parts of digestive tract; E78.5 Hyperlipidemia, unspecified; E66.9 Obesity, unspecified; Z68.35 Body mass index [BMI] 35.0-35.9, adult; Z87.891 Personal history of nicotine dependence
CPT/HCPCS: 36590; J0690; J2250; J2405; J2704; J3010; J7120

== ENCOUNTER 2023-04-04 13:35 | Outpatient (CLI) | payer BC, SELFPAY ==
[2023-04-04 13:46] LABS: Basophils Absolute Auto 0.1 K/mm3 (0.0-0.1); Basophils Percent Auto 1.5 % (0.2-1.2); Eosinophils Absolute Auto 0.2 K/mm3 (0-0.3); Eosinophils Percent Auto 3.2 % (0-4.4); Hematocrit 45.4 % (42.0-52.0); Hemoglobin 15.3 g/dL (14.0-18.0); Immature Granulocyte Absolute 0.01 K/mm3 (0.00-0.031); Immature Granulocyte Percent A 0.2 % (0-0.5); Lymphocytes Absolute Auto 1.65 K/mm3 (0.9-3.2); Lymphocytes Percent Auto 28.1 % (18.3-44.2); Mean Corpuscular HGB Conc 33.7 g/dl (32-36); Mean Corpuscular Volume 91.9 fl (80-100); Mean Platelet Volume 8.3 fl (7.4-10.4); Monocytes Absolute Auto 0.7 K/mm3 (0.1-0.6); Monocytes Percent Auto 11.9 % (2.6-8.5); Neutrophils Absolute Auto 3.2 K/mm3 (1.3-6.7); Neutrophils Percent Auto 55.1 % (45.5-73.1); Platelet Count Result 154 k/mm3 (150-375); Red Blood Count 4.94 M/mm3 (4.6-6.20); Red Cell Distribution Width 12.2 % (11.5-14.5); White Blood Count 5.9 K/mm3 (4.5-10.0)
[2023-04-04 16:53] LABS: Alanine Aminotransferase 42 U/L (6-50); Albumin Level 4.5 g/dL (3.5-5.1); Alkaline Phosphatase 70 U/L (38-126); Anion Gap 8 mmol/L (8-16); Aspartate Amino Transferase 37 U/L (17-59); Bilirubin,Total 0.5 mg/dL (0.2-1.3); Blood Urea Nitrogen 13 mg/dL (9-20); Calcium 9.3 mg/dL (8.4-10.2); Carbon Dioxide 29 mmol/L (22-30); Chloride 106 mmol/L (98-107); Estimated Glomerular Filt Rate > 60; Glucose 111 mg/dL (65-110); Potassium 4.8 mmol/L (3.4-5.0); Sodium 143 mmol/L (137-145)
[2023-04-04 17:23] LABS: Carcinoembryonic Antigen 0.9 ng/mL (0.0-3.0)
== END 2023-04-04 13:36 | disposition home or self-care (01) ==
LOC: ANHLAB 13:37
PROVIDERS: PCP Internal Medicine; Visit Provider Internal Medicine Hematology & Oncology
DX: C18.7 Malignant neoplasm of sigmoid colon (principal)
CPT/HCPCS: 36415; 80053; 82378; 85025

== ENCOUNTER 2023-12-11 13:39 | Outpatient (CLI) | payer BC, SELFPAY ==
[2023-12-11 13:52] LABS: Basophils Absolute Auto 0.1 K/mm3 (0.0-0.1); Basophils Percent Auto 1.5 % (0.2-1.2); Eosinophils Absolute Auto 0.2 K/mm3 (0-0.3); Eosinophils Percent Auto 2.3 % (0-4.4); Hematocrit 46.1 % (42.0-52.0); Hemoglobin 15.3 g/dL (14.0-18.0); Immature Granulocyte Absolute 0.03 K/mm3 (0.00-0.031); Immature Granulocyte Percent A 0.5 % (0-0.5); Lymphocytes Absolute Auto 1.59 K/mm3 (0.9-3.2); Lymphocytes Percent Auto 23.9 % (18.3-44.2); Mean Corpuscular HGB Conc 33.2 g/dl (32-36); Mean Corpuscular Volume 93.5 fl (80-100); Mean Platelet Volume 8.7 fl (7.4-10.4); Monocytes Absolute Auto 0.9 K/mm3 (0.1-0.6); Monocytes Percent Auto 12.9 % (2.6-8.5); Neutrophils Absolute Auto 3.9 K/mm3 (1.3-6.7); Neutrophils Percent Auto 58.9 % (45.5-73.1); Platelet Count Result 177 k/mm3 (150-375); Red Blood Count 4.93 M/mm3 (4.6-6.20); Red Cell Distribution Width 13.1 % (11.5-14.5); White Blood Count 6.7 K/mm3 (4.5-10.0)
[2023-12-11 17:33] LABS: Alanine Aminotransferase 30 U/L (6-50); Albumin Level 4.9 g/dL (3.5-5.1); Alkaline Phosphatase 69 U/L (38-126); Anion Gap 15 mmol/L (4-12); Aspartate Amino Transferase 36 U/L (17-59); Bilirubin,Total 0.8 mg/dL (0.2-1.3); Blood Urea Nitrogen 11 mg/dL (9-20); Calcium 9.5 mg/dL (8.4-10.2); Carbon Dioxide 23 mmol/L (22-30); Chloride 100 mmol/L (98-107); Estimated Glomerular Filt Rate > 60; Glucose 98 mg/dL (65-110); Potassium 4.8 mmol/L (3.4-5.0); Sodium 138 mmol/L (137-145)
[2023-12-11 18:02] LABS: Carcinoembryonic Antigen 1.2 ng/mL (0.0-3.0)
== END 2023-12-11 13:40 | disposition home or self-care (01) ==
LOC: ANHLAB 13:41
PROVIDERS: PCP Internal Medicine; Visit Provider Internal Medicine Hematology & Oncology
DX: C18.7 Malignant neoplasm of sigmoid colon (principal)
CPT/HCPCS: 36415; 80053; 82378; 85025

== ENCOUNTER 2023-12-18 08:18 | Outpatient (CLI) | payer BC, SELFPAY ==
--- NOTE | ~2023-12-18 | CT_ITS ---
CT of the Abdomen and Pelvis: Indication: Colon cancer Technique: 2.5 mm axial scans were obtained through the abdomen and pelvis following intravenous adm inistration of 100 cc of Omnipaque 350. Dose reduction technique was used on this scan by utilizing a utomated exposure control and iterative reconstruction technique. The dose-length product (DLP) was 1 307.38 mGy-cm. COMPARISON: 11/29/2022 Findings: Scans through the lung bases are unremarkable. The liver, spleen, pancreas, gallbladder, adrenals and kidneys are within normal limits. There are at herosclerotic calcifications of the aorta. No lymphadenopathy. No bowel obstruction or bowel wall thickening. Rectosigmoid anastomosis noted. Images through the pelvis were performed. Probably urinary bladder wall thickening. No pelvic mass se en. No ascites. Impression: No evidence of active malignancy or metastatic disease. Rectosigmoid anastomosis. Probable cystitis. Reviewed, dictated and finalized at [facility]. Impression: No evidence of active malignancy or metastatic disease. Rectosigmoid anastomosis. Probable cystitis.
== END 2023-12-18 08:19 | disposition home or self-care (01) ==
PROVIDERS: PCP Internal Medicine; Visit Provider Internal Medicine Hematology & Oncology
DX: C18.7 Malignant neoplasm of sigmoid colon (principal); K63.89 Other specified diseases of intestine
CPT/HCPCS: 74177; Q9967

== ENCOUNTER 2024-06-25 14:42 | Outpatient (CLI) | payer BC, SELFPAY ==
[2024-06-25 15:00] LABS: Basophils Absolute Auto 0.1 K/mm3 (0.0-0.1); Eosinophils Absolute Auto 0.1 K/mm3 (0-0.3); Eosinophils Percent Auto 2.8 % (0-4.4); Hematocrit 42.3 % (42.0-52.0); Hemoglobin 14.6 g/dL (14.0-18.0); Immature Granulocyte Absolute 0.01 K/mm3 (0.00-0.031); Immature Granulocyte Percent A 0.2 % (0-0.5); Lymphocytes Absolute Auto 1.43 K/mm3 (0.9-3.2); Lymphocytes Percent Auto 31.2 % (18.3-44.2); Mean Corpuscular HGB Conc 34.5 g/dl (32-36); Mean Corpuscular Hemoglobin 32.5 pg (26-34); Mean Corpuscular Volume 94.2 fl (80-100); Mean Platelet Volume 8.5 fl (7.4-10.4); Monocytes Absolute Auto 0.6 K/mm3 (0.1-0.6); Neutrophils Absolute Auto 2.3 K/mm3 (1.3-6.7); Neutrophils Percent Auto 49.8 % (45.5-73.1); Platelet Count Result 162 k/mm3 (150-375); Red Blood Count 4.49 M/mm3 (4.6-6.20); Red Cell Distribution Width 12.4 % (11.5-14.5); White Blood Count 4.6 K/mm3 (4.5-10.0)
--- OUTSIDE RECORDS SUMMARY | 2024-06-25 16:13 | XMS_ITS | Encounter Summary ---
Author Organization [facility] Address [address] [place] [address] Care Team Providers Care Dye House Wheel Operator Name Role Phone Charlie Alejo MD Primary Care Provider Encounter Details Date Type Department Care Team (Late st Contact Info) Description 06/25/2024 Orders Only [facility] Oncology and Hematology - Jos[place] [address] [place] [address] Ace Baca MD [facility] [address] [place] [id number] Social History Tobacco Use Types Packs/Day Years Used Date Smoking Tobacco: Former Cigarettes 1 10 0 03/27/1985 - 03/27/1995 Smokeless Tobacco: Never Alcohol Use Standard Drinks/Week Comments Not Currently 0 (1 standard drink = 0.6 oz pur e alcohol) Sex and Gender Information Value Date Recorded Sex Assigned at Not on file Legal Sex Male 6:43 PM CDT Gender Identity Not on file Sexual Orientation Not on file documented as of this encounter Plan of Treatment Upcoming Encounters Date Type Department Care Team (Late st Contact Info) Description 07/01/2024 11:00 AM CDT Office Visit [facility] Oncology and Hematology - [place] [address] [place] [address] Ace Baca MD [address] [place] [address] documented as of this encounter Procedures Procedure Name Priority Date/Time Associated Diagnosis Comments CBC MIXED CELL DIFFERENTIAL Routine 06/25/2024 3:54 PM CDT documented in this encounter Results * CBC MIXED CELL DIFFERENTIAL (06/25/2024 3:54 PM CDT) Blood Ace Baca MD HEMATOLOGY ORDERABLES Final Res ult documented in this encounter Visit Diagnoses Not on filedocumented in this encounter Care Teams Dye House Wheel Operator Relationship Specialty Start Date End Date Charlie Alejo MD PCP - General Internal Medicine 09/17/21 documented as of this encounter
--- OUTSIDE RECORDS SUMMARY | 2024-06-25 16:13 | XMS_ITS | Clinical Summary ---
Author Organization [facility] Address [address] [place] [address] Care Team Providers Care Plug Making Operator Name Role Phone Charlie Alejo MD Primary Care Provider Allergies No known active allergies Medications rosuvastatin (CRESTOR) 40 mg tablet Take 40 mg by mouth daily. Active [id number] -[id number] 1 mg-1.5 mg- 1.7 mg-50 mg Tablet Take by mouth. Activ e thiamine (VITAMIN B-1) 100 mg tablet Take 1 Tablet by mouth daily. Active ondansetron (Zofran) 8 mg TabletIndicati ons:Malignant neoplasm of sigmoid colon (CMS/HCC) Take 1 Tablet (8 mg) by mouth every 8 hours as needed for Nausea/Emesis. 90 Tablet 3 2 Active lidocaine-pril ocaine (EMLA) 2.5-2.5 % CreamIndicatio ns:Malignant neoplasm of sigmoid colon (CMS/HCC) Apply to affected area see administration instructions. 30 Gram 3 2 Active erythromycin (E-MYCIN) 500 mg tablet 2 Active folic acid (FOLVITE) 1 mg tablet Take 1 mg by mouth daily. 2 Active HYDROcodone-ac etaminophen (NORCO) 5-325 mg tablet TAKE 1 TO 2 TABLETS BY MOUTH EVERY 6 HOURS NEEDED FOR PAIN 2 Active ibuprofen (MOTRIN) 600 mg tablet Take 600 mg by mouth every 6 hours as needed. 2 Active neomycin (MYCIFRADIN) 500 mg tablet 2 Active Vitamin B-1, mononitrate, 100 mg tablet Take 1 Tablet by mouth daily. 2 Active aspirin (ECOTRIN EC) 325 mg Tablet, Delayed Release (E.C.) Take 325 mg by mouth daily. Active prochlorperazi ne maleate (COMPAZINE) 5 mg tablet Take 2 Tablets (10 mg) by mouth every 6 hours as needed for Nausea/Emesis. 30 Tablet 1 2 Active Active Problems Problem Noted Date Diagnosed Date Malignant neoplasm of sigmoid colon 09/17/2021 Encounters Date Type Department Care Team Description 06/25/2024 Orders Only [facility] Oncology and Hematology - Jos[place] [address] [address] Ace Baca MD 06/12/2024 External Device Data STL ABSTRACTION Provider, Abstract 06/01/2024 External Device Data STL ABSTRACTION Provider, Abstract 05/31/2024 External Device Data STL ABSTRACTION Provider, Abstract 05/29/2024 External Device Data STL ABSTRACTION Provider, Abstract 05/15/2024 External Device Data STL ABSTRACTION Provider, Abstract 05/14/2024 External Device Data STL ABSTRACTION Provider, Abstract 04/23/2024 External Device Data STL ABSTRACTION Provider, Abstract from Last 3 Months Social History Tobacco Use Types Packs/Day Years Used Date Smoking Tobacco: Former Cigarettes 1 10 0 03/27/1985 - 03/27/1995 Smokeless Tobacco: Never Tobacco Cessation:Counseling Given: Not Answered Alcohol Use Standard Drinks/Week Comments Not Currently 0 (1 standard drink = 0.6 oz pur e alcohol) Sex and Gender Information Value Date Recorded Sex Assigned at Not on file Legal Sex Male 6:43 PM CDT Gender Identity Not on file Sexual Orientation Not on file Last Filed Vital Signs Vital Sign Reading Time Taken Comments Blood Pressure 120/74 12/25/2023 4:05 PM CDT Pulse 67 12/25/2023 4:05 PM CDT Temperature 36.7 C (98 F) 12/25/2023 4:05 PM CDT Respiratory Rate 16 12/25/2023 4:05 PM CDT Oxygen Saturation 96% 12/25/2023 4:05 PM CDT Inhaled Oxygen Concentration - - Weight 106.1 kg (234 lb) 12/25/2023 4:05 PM CDT Height 182.9 cm (6') 01/05/2022 8:33 AM CDT Body Mass Index 31.74 01/05/2022 8:33 AM CDT Plan of Treatment Upcoming Encounters Date Type Department Care Team (Late st Contact Info) Description 07/01/2024 11:00 AM CDT Office Visit [facility] Oncology and Hematology - [place] [address] [facility] [address] [place] [address] Ace Baca MD [address] [facility] [address] [place] [address] Health Maintenance Due Date Last Done Comments Pre-Diabetes and Diabetes Screening 1965 DTAP/TDAP/TD VACCINES (1 - Tdap) 12/26/1982 ZOSTER VACCINE (1 of 2) 12/26/2013 INFLUENZA VACCINE (#1) 2023 COVID-19 Vaccine (2 - 2023-2 5 season) 2023 02/12/2021 Preventative Visit- Commercial 03/27/2024 RSV VACCINE (60+ or ) (1 - 1-dose 75+ series) 12/26/2038 HEPATITIS B VACCINES Aged Out No long er eligible based on patient's age to complete this topic Procedures Procedure Name Priority Date/Time Associated Diagnosis Comments CBC MIXED CELL DIFFERENTIAL Routine 06/25/2024 3:54 PM CDT from Last 3 Months Results * CBC MIXED CELL DIFFERENTIAL (06/25/2024 3:54 PM CDT) Blood us Ace Baca MD HEMATOLOGY ORDERABLES Final Res ult from Last [address] [place] [id number] [facility] BLUE ACCESS CHOICE Care Teams Plug Making Operator Relationship Specialty Start Date End Date Charlie Alejo MD PCP - General Internal Medicine 09/17/21
--- OUTSIDE RECORDS SUMMARY | 2024-06-25 16:13 | XMS_ITS | Data Portability ---
Author Organization [place] [facility], Main Office Address [address] [place] [address] Assessment Encounter Date Assessment Date Assessment LastModified by Organization Details LastModified Time 09/05/2022 09/05/2022 05/27/2021: PSA 0.7 04/27/2022: TSH/FT4/CBC: WNL CMP: Gluc 124, ALT 42 Chol 271, TG 194, HDL 73, LDL 163 Hep C ab neg Hep B s ag neg GGT Neg 09/02/2022: TSH/FT4/CBC/CMP: WNL Chol 238, LDL 153 Not available 09/05/2022 17:04:32 12/28/2022 12/28/2022 The patient gave verbal consent using TelePhonic services and the consent is documented in the medical record prior to using the service. The patient has been informed of what a TeleMedicine visit is. Patient is located at work. Provider is located at office. Names and roles of persons in addition to the patient and provider participating in telemedicine services include none. The patient had a 12 minute TeleMedicine consultation via phone call to discuss the followin05/27/2021: PSA 0.7 04/27/2022: TSH/FT4/CBC: WNL CMP: Gluc 124, ALT 42 Chol 271, TG 194, HDL 73, LDL 163 Hep C ab neg Hep B s ag neg GGT Neg 09/02/2022: TSH/FT4/CBC/CMP: WNL Chol 238, LDL 153 12/22/2022: PSA 0.7 Chol 201, LDL 113 Not available 12/28/2022 11:14:53 01/03/2024 01/03/2024 05/27/2021: PSA 0.7 04/27/2022: TSH/FT4/CBC: WNL CMP: Gluc 124, ALT 42 Chol 271, TG 194, HDL 73, LDL 163 Hep C ab neg Hep B s ag neg GGT Neg 09/02/2022: TSH/FT4/CBC/CMP: WNL Chol 238, LDL 153 12/22/2022: PSA 0.7 Chol 201, LDL 113 12/11/2023: Dr Baca TP 9.0 Not available 01/03/2024 16:36:08 Plan of Treatment Reminders Order Date Submit Date Provider Last Modified By Organization Details Last Modified Time Details Appointments None recorded. Lab PSA, total, serum or plasma 2023 024 [email or web address] [facility], [address] [facility], [facility] 2, [place], [address], 16:42:01 vitamin D, 25-hydroxy, total, serum 2023 024 [email or web address] [facility], [address] [place] [address] 2, [place], [address], 08:42:27 lipid panel, serum 2023 024 [email or web address] [facility], [address] [place] [address] 2, [place], [address], 16:42:01 T4, free, serum 2023 024 [email or web address] [facility], [address] [place] [address] 2, [place], [address], 16:42:01 TSH, ultra-sensi tive, serum 2023 024 [email or web address] [facility], [address] [place] [address] 2, [place], [address], 16:42:01 lipid panel, serum 2022 023 [email or web address] [facility], [address] [place] [address] 2, [place], [address], 4 08:19:16 CBC w/ auto diff 2022 023 JOSAFAT [facility], [address], [address], [place], [address], 4 17:33:39 CMP, serum or plasma 2022 023 JOSAFAT [facility], [address] [facility], [facility] 2, [place], [address], 4 06:03:39 T4, free, serum 2022 023 [email or web address] [facility], [address] [facility], [facility] 2, [place], [address], 4 08:19:16 TSH, ultra-sensi tive, serum 2022 023 [email or web address] [facility], [address] [place] [address], [facility] 2, [place], [address], 4 08:19:17 PSA, total, serum or plasma 2022 023 [email or web address] [facility], [address] [facility], [facility] 2, [place], [address], 4 17:47:17 lipid panel, serum 2022 023 JOSAFAT [facility], [address] [facility], [facility] 2, [place], [address], 3 13:47:43 CBC w/ auto diff 2022 023 JOSAFAT [facility], [address] [facility], [address], [place], [address], 3 13:47:43 CMP, serum or plasma 2022 023 JOSAFAT [facility], [address] [facility], [address], [place], [address], 3 13:47:43 T4, free, serum 2022 023 [email or web address] [facility], [address] [facility] 2, [place], [address], 4 17:47:16 TSH, ultra-sensi tive, serum 2022 023 [email or web address] [facility], [address] [facility] 2, [place], [address], 4 17:47:17 Referral gastroenter ologist referral 2022 024 [email or web address] Jane David MD, [address] [facility], [facility] 28, [place], [address], 4 08:19:55 gastroenter ologist referral 2022 023 [email or web address] Ace Baca MD, [address], [place], [address], 3 17:50:54 Procedures None recorded. Surgeries None recorded. Imaging US, liver - Please call patient to schedule. 2023 024 [facility], [address], [address], [place], [address], 4 08:56:36 Medication Orders rosuvastati n 40 mg tablet 2022 023 [email or web address] [id number], 2 [facility], [place], [place], [id number], 4 15:55:25 Patient TargetsNo targets recorded. Patient Instructions Encounter Date Encounter Id Patient Instructions Last Modified By Organization Details Last Modified Time 12/28/2022 [id number] Due to the COVID-19 (Novel Coronavirus) pandemic, it is within this context (and with the understanding that this method of patient encounter is in the patient s best interest as well as the health and safety of other patients and the public) that t [employer] is being provided for this patient encounter rather than a [id number] visit. This patient encounter is appropriate at this time. This patient has been advised of the potential risks and limitations of this mode of treatment (including, but not limited to, the absence of in-person examination) and has agreed to be treated in a remote fashion despite these risks. Any and all of the patient s /patient s family s questions on this issue have been answered, and I have made no promises or guarantees to the patient. The patient has also been advised to contact this office for worsening conditions or problems, and seek emergency medical treatment and/or call 911 if the patient deems either necessary. HPI and/or vitals, if listed, were provided by the patient. Not available 12/28/2022 11:03:17 Reason for Referral Ladle Filler Referral for Increased liver function Referring Physician: Charlie Alejo, Internal Medicine, Encounter Date: 09/05/2022 Ladle Filler Referral for Increased liver function Referring Physician: Charlie Alejo, Internal Medicine, Encounter Date: 12/28/2022 Results Created Date Observation Date Name Description Value Unit Range Abnormal Flag Note LastModifiedBy Organization Detail LastModifiedTime 01/08/2001/07/2022 XR, gregorio catho gram No observ ation record ed. [id number], [place], [address], 05/26/2022 00:27:35 04/13/1904/13/2022 CT, abdom en + pelvi s, w/o contr ast No observ ation record ed. [id number], [place], [address], 05/26/2022 00:27:35 04/26/19 23 04/26/2022 US, liver No observ ation record ed. [id number] [facility] [address] [facility], [place], [address], 05/26/2022 00:27:35 12/01/19 23 11/29/2022 CT, abdom en + pelvi s, w/ contr ast No observ ation record ed. [email or web address] [facility] [address] [facility] [address], [place], [address], 12/28/2022 17:06:49 12/18/19 24 12/18/2023 imagi ng/di agnos tic resul t No observ ation record ed. [facility] [address], [place], [address], 12/18/2023 10:23:23 Result Notes None recorded. Problems Name Problem SNOMED Code Status Onset Date Resolution Date Notes Provider Name and Address Organization Details Recorded Time Blood glucose outside reference range 848742328 Active 2021 Not Available [facility] 3 02:34:34 Hyperlipidemi a 70308458 Active 2021 Not Available [facility] 3 02:34:34 Gastroesophag eal reflux disease without esophagitis 008149920 Active 2022 Charlie sanchez MD [address], [address], [place], [address] , [facility] 3 16:53:12 Alcohol dependence 29466069 Active 2022 Charlie sanchez MD [address], [address], [place], [address] , [facility] 3 16:55:23 Essential hypertension 32008123 Active 2022 Charlie sanchez MD [address], [address], [place], [address] , [facility] 3 16:55:57 Increased liver function 71996372 Active 2022 Charlie sanchez MD [address], [place], [address] , [facility] 3 16:56:05 Vitamin D deficiency 38016804 Active 2023 Charlie sanchez MD [address], [address], [place], [address] , [employer] 16:20:03 Hyperproteine ashley 20730104 Active 2023 Charlie sanchez MD [address], [address], [place], [address] , [employer] 16:42:35 Problem Notes None recorded. Procedures Surgical History Date Name Laterality Status Provider Name and Address Organization Details Recorded Time 12/23/19 removal of implantable venous access port completed MAURI Bustos [employer] 12/28/2022 11:04:38 Colon Resection completed Not Available [facility] 05/26/2022 00:25:47 other completed Not Available [facility] 04/2022 00:25:47 Imaging Results Imaging Date Name Status LastModified by Organization Details LastModified Time 04/13/2022 CT, abdomen + pelvis, w/o contrast completed [id number] [place] [address], [address], 05/26/2022 00:27:35 04/26/2022 US, liver completed [id number] [facility] [address], [place], [address], 05/26/2022 00:27:35 01/07/2022 XR, portacathogram completed [id number] [id number] [address] [facility], [place], [address], 05/26/2022 00:27:35 11/29/2022 CT, abdomen + pelvis, w/ contrast completed [email or web address] [place] [address] [place] [address], [address], 12/28/2022 17:06:49 12/18/2023 imaging/diagnostic result active [address] [place] [address], [address], 12/18/2023 10:23:23 Procedure Notes None recorded. Medical Equipment None Reported. Allergies No known drug allergies Medications Name Sig Start Date Stop Date Status Note LastModified by Organization Details LastModified Time erythromyci n 500 mg tablet 12/13 completed Not Available Not Available Not Available hydrocodone 5 mg-acetamin ophen 325 mg tablet TAKE 1 TO 2 TABLETS BY MOUTH EVERY 6 HOURS NEEDED FOR PAIN 12/13 completed Not Available Not Available Not Available prochlorper azine maleate 5 mg tablet 09/05 completed Not Available Not Available Not Available ondansetron HCl 8 mg tablet 09/05 completed Not Available Not Available Not Available thiamine HCl (vitamin B1) 100 mg tablet Take 1 tablet every day by oral route for 90 days. 09/05 completed Not Available Not Available Not Available lidocaine-p rilocaine 2.5 %-2.5 % topical cream APPLY TO THE AFFECTED AREA DIRECTED 09/05 completed Not Available Not Available Not Available folic acid 1 mg tablet Take 1 tablet every day by oral route for 90 days. 09/05 completed Not Available Not Available Not Available ibuprofen 600 mg tablet TAKE 1 TABLET BY MOUTH EVERY 6 HOURS NEEDED FOR PAIN 12/13 completed Not Available Not Available Not Available neomycin 500 mg tablet 12/13 completed Not Available Not Available Not Available rosuvastati n 40 mg tablet TAKE 1 TABLET BY MOUTH EVERY DAY 01/02 completed Not Available Not Available Not Available multivitami n active Not Available Not Available Not Available Vitamin B-1 (mononitrat e) 100 mg tablet TAKE 1 TABLET BY MOUTH EVERY DAY 09/05 completed Not Available Not Available Not Available Vitals Date Recorded Body mass index (BMI) Body height Heart rate Body temperature Body weight Systolic blood pressure Diastolic blood pressure Provider Name and Address Organization Details Last Updated DateTime 2 37 kg/m2 182.88 cm 96 /min 97.3 [degF] 162211. 72 g 130 mm[Hg] 72 mm[Hg] Not Available [facility] 3 00:25:55 Date Recorded Body mass index (BMI) Body height Oxygen saturation Oxygen saturation in Arterial blood by Pulse oximetry Heart rate Body temperature Body weight Systolic blood pressure Diastolic blood pressure Provider Name and Address Organization Details Last Updated DateTime 3 37.3 kg/m2 182.88 cm 98 % 98 % 79 /min 97.4 [degF] 451039. 9 g 120 mm[Hg] 76 mm[Hg] Not Available [facility] 3 00:25:56 Date Recorded Body height Body mass index (BMI) Body weight Body temperature Heart rate Systolic blood pressure Diastolic blood pressure Provider Name and Address Organization Details Last Updated DateTime 3 182.88 cm 35.7 kg/m2 984962. 79 g 97.2 [degF] 72 /min 110 mm[Hg] 64 mm[Hg] Kenna Wu Miriam [facility] [facility] 3 17:13:54 Date Recorded Body height Provider Name an d Address Organization Details Last Updated DateTime 12/28/2022 182.88 cm Kenna Wu Miriam [facility] 12/28/2022 11:03:23 Date Recorded Body height Body mass index (BMI) Body weight Body temperature Heart rate Respiratory rate Oxygen saturation Oxygen saturation in Arterial blood by Pulse oximetry Pain severity - 0-10 verbal numeric rating [Score] - Reported Systolic blood pressure Diastolic blood pressure Provider Name and Address Organization Details Last Updated DateTime 4 182.88 cm 32 kg/m2 178864. 8 g 97.8 [degF] 80 /min 18 /min 95 % 95 % 0 134 mm[Hg] 80 mm[Hg] Miguel Birmingham LPN [facility] [employer] [facility] 4 16:10:52 Social History Question Answer Notes LastModified by Organizat ion Details LastModified Time Tobacco Smoking Status Former Smoker Not Available [facility] 05/26/2022 00:25:20 Do You Have An Advance Directive? Yes MIGRATION.72199 [id number] Information not available 05/26/2022 What Is Your Level Of Alcohol Consumption? Occasional MIGRATION.33466 93117 Information not available 05/26/2022 What Is Your Level Of Caffeine Consumption? None MIGRATION.88937 76158 Information not available 05/26/2022 In The 14 Days Before Symptom Onset, Have You Had Close Contact With A Laboratory-latashai dominiqueed COVID-19 While That Case Was Ill? No MIGRATION.99060 59963 Information not available 05/26/2022 In The 14 Days Before Symptom Onset, Have You Had Close Contact With A Person Who Is Under Investigation For COVID-19 While That Person Was Ill? No MIGRATION.88141 37697 Information not available 05/26/2022 What Type Of Diet Are You Following? REGULAR MIGRATION.42660 52774 Information not available 05/26/2022 What Is The Highest Grade Or Level Of School You Have Completed Or The Highest Degree You Have Received? 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 Yes MIGRATION.98572 68192 Information not available 05/26/2022 What Is The Fluoride Status Of Your Home? Unknown MIGRATION.46451 94297 Information not available 05/26/2022 When Did You Quit Smoking? 16+yearssincelastc igarette MIGRATION.88768 04667 Information not available 05/26/2022 Are There Any Guns Present In Your Home? No MIGRATION.15203 84541 Information not available 05/26/2022 Do You Use Insect Repellent Routinely? No MIGRATION.32132 57965 Information not available 05/26/2022 Where Do You Live? [facility] MIGRATION.04596 55572 Information not available 05/26/2022 Do You Have A Medical Power Of Steward/Stewardess Wine? Yes MIGRATION.66411 32916 Information not available 05/26/2022 What Was The Date Of Your Most Recent Tobacco Screening? 12/28/2022 Information not available 12/28/2022 Do You Have Any Pets? Yes MIGRATION.48265 24797 Information not available 05/26/2022 What Is Your Relationship Status? MIGRATION.08927 59089 Information not available 05/26/2022 Do You Use Your Seat Belt Or Car Seat Routinely? Yes MIGRATION.85605 88111 Information not available 05/26/2022 Do You Have Smoke And Carbon Monoxide Detectors In Your Home? Yes MIGRATION.76959 29848 Information not available 05/26/2022 Are You Passively Exposed To Smoke? No MIGRATION.99547 06955 Information not available 05/26/2022 Are There Any Smokers In Your House? No MIGRATION.22214 82703 Information not available 05/26/2022 Do You Feel Stressed (tense, Restless, Nervous, Or Anxious, Or Unable To Sleep At Night)? [id number] MIGRATION.04034 69865 Information not available 05/26/2022 Do You Use Any Illicit Or Recreational Drugs? No MIGRATION.14236 99622 Information not available 05/26/2022 Do You Use Sunscreen Routinely? Yes MIGRATION.24307 02280 Information not available 05/26/2022 Has Tobacco Cessation Counseling Been Provided? No MIGRATION.47557 01860 Information not available 05/26/2022 Have You Recently Traveled Abroad? No MIGRATION.38036 40205 Information not available 05/26/2022 Do You Have Any Dietary Restrictions? No MIGRATION.78611 45106 Information not available 05/26/2022 Do You Or Have You Ever Used Any Other Forms Of Tobacco Or Nicotine? No MIGRATION.13177 60158 Information not available 05/26/2022 Sex: Male Functional Status Question Answer Note LastModified by Organizat ion Details LastModified Time What is your exercise level? Moderate [id number] Information not available 05/26/2022 Mental Status None recorded. Family History Relationship Description Onset Age of this Age Resolved Age Notes LastModified by Organization Details LastModified Time Father Malignant tumor of lung [id number] Not available 05/26/2022 00:25:48 Medical History Condition Response NERVE DISEASE N BLINDNESS N RHEUMATIC FEVER N KIDNEY STONES N BLADDER PROBLEMS N MRSA N OTHER # 1 N POLIO N LUNG DISEASE/DISORDER N HISTORY OF DRUG ABUSE N RADIATION / CHEMOTHERAPY N COPD N Other # 2 N BLOOD DISEASES N EAR OR HEARING PROBLEMS N MUMPS N SHINGLES N BOWEL PROBLEMS N DEPRESSION (INCLUDING POST ) N STROKE/TIA N ULCERS N BENIGN PROSTATIC HYPERPLASIA N MEASLES N HYPOTENSION N MYOCARDIAL INFARCTION N OBESITY N GERD/NAUSEA N ANEURYSM N URINARY/BLADDER/KIDNEY PROBLEMS N CORONARY ARTERY DISEASE (CAD) N ADDICTION CONCERNS N Impotence N ENDOMETRIOSIS N USE OF BLOOD THINNERS N SKIN PROBLEMS N GASTROINTESTINAL DISORDER N PERIPHERAL VASCULAR DISEASE N MUSCLE,JOINT OR BONE PROBLEMS N GASTROINTESTINAL BLEEDING N BLOOD CLOTS N ASTHMA N CATARACTS N ERECTILE DYSFUNCTION N VARICOSITIES N GI PROBLEMS N Low Testosterone N INFERTILITY N AIDS/HIV N CHEMOTHERAPY / RADIATION N LIVER DISEASE N MALE HYPOGONADISM N HYPERTENSION N Deficiency N TOURETTE'S N ANXIETY DISORDER N BLOOD TRANSFUSION N ANEMIA/BLOOD DISORDER N CHRONIC EAR INFECTIONS N BRONCHITIS N TUBERCULOSIS N GLAUCOMA N FOOT PROBLEM N DIVERTICULITIS N SLEEP APNEA N CHICKENPOX N INFECTIOUS DISEASE N PROSTATE N HEART ARRHYTHMIA N INSOMNIA N HIGH CHOLESTEROL / HYPERLIPIDEMIA N EYE PROBLEMS N HYPERTHYROIDISM N EDEMA N CHRONIC PAIN SYNDROME N HYPOTHYROIDISM N CONSTIPATION N CAROTID BLOCKAGE N BACK / NECK PROBLEMS N ATHEROSCLEROSIS N BREAST PROBLEMS N DIALYSIS N ECZEMA N OSTEOPOROSIS N ARTHRITIS N APPENDICITIS N DIABETES, TYPE N BAD TEETH N ENT N HEARTBURN / REFLUX N AUTISM SPECTRUM DISORDER (ASD) N HEPATITIS / LIVER DISEASE N GOUT N SLEEP DISORDER N ALZHEIMER'S DISEASE N Brain Problems N DEMENTIA N HERPES N SEIZURES/EPILEPSY N HEADACHES/MIGRAINES N VASCULAR DISEASE N PACEMAKER N Blood Disorder N DIZZINESS N HEART DISEASE/HEART PROBLEMS N KIDNEY DISEASE N MULTIPLE SCLEROSIS N CANCER: SPECIFY Y CARDIAC ARRHYTHMIA N ATRIAL FIBRILLATION N Gall Stones N PULMONARY EMBOLISM N AUTOIMMUNE DISEASE N Immunizations Vaccine Type Date Status Note Provider Nam e and Address Organization Details Recorded Time COVID-19, mRNA, LNP-S, PF, 100 mcg/0.5mL dose or 50 mcg/0.25mL dose 02/12/2021 completed Not Available [facility] 3 02:34:34 COVID-19, mRNA, LNP-S, PF, 100 mcg/0.5mL dose or 50 mcg/0.25mL dose 05/29/2020 completed Not Available [facility] 3 02:34:34 COVID-19, mRNA, LNP-S, PF, 100 mcg/0.5mL dose or 50 mcg/0.25mL dose 05/01/2020 completed Not Available [facility] 3 02:34:34 Tdap 05/26/2021 completed Not Available [facility] 06/15/2022 02:34:34 Influenza, split virus, quadrivalent, PF 05/26/2021 completed Not Available [facility] 3 02:34:34 Influenza, split virus, trivalent, PF 01/03/2024 completed Charlie Alejo MD [address] [place] [address], [address], [address], [facility] 01/19/2024 22:49:27 Past Encounters Encounter ID Performer Location Encounter Start Date Encounter Closed Date Diagnosis/Indication Diagnosis SNOMED-CT Code Diagnosis ICD10 Code Diagnosis Note [id number] [facility] [place] [address] [place] [address] [place] [address] 05/26/2021 00:00:00 05/26/2021 18:13:52 [id number] [facility] [place] [address] [place] [address] [place] [address] 12/13/2021 00:00:00 01/28/2022 17:26:18 [id number] [facility] [place] [address] [place] [address] [place] [address] 05/02/2022 00:00:00 05/02/2022 17:57:00 [id number] Charlie sanchez MD [facility] [place] [address] [place] [address] [place] [address] 09/05/2022 16:56:09 09/05/2022 17:52:48 Screening - NAD [id number] Z13.9 C-scope: Dr Mai 07/09/2021 , Dr De La Cruz 07/30/2021 :CRC UTD yearly flu shot 05/26/2021 UTD on Tdap 05/26/2021 UTD COVID 19 vaccineCan do shingrix vaccine RTC in 4 monthsGet labsER if worseHe and his did verbalize his understand ing of the above Gastroesop hageal reflux disease without esophagitis 614655474 K21.9 EGD: 07/09/2021 : Dr Mai: GastritisN ot on any meds Alcohol dependence 22525 003 F10.20 Advised to wean off and stop!On thiamine and folate Hyperlipidemia 52705192 E78.5 On rosuvastat in 40mg daily needs a refill, more diet and exercise is needed, renewed 09/05/2022 Get labs History of malignant neoplasm of colon 888439872 Z85.038 S/p lap sigmoidect eladia 08/24/2021 Dr Baca 12/08/2021 , on chemoRx, on zofram, on iron Dr Baca 04/27/2022 , to get c-scope with Dr Mai C-scope 07/20/2022 : Dr Mai next in 2 yearsDr Phuong 08/01/2022 : f/u in 4 months Essential hypertension 11933489 I10 BP is stable here and at Dr Baca's office on 12/08/2021 was 130/80No CVS or LOGGING ENGINEER complaints States that when his BP was taken at work he was working in a hot 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 [place] [address] 12/28/2022 10:55:08 12/28/2022 12:09:22 Screening - NAD [id number] Z13.9 C-scope: Dr Mai 07/09/2021 , Dr De La Cruz 07/30/2021 :CRC Get yearly flu shotUTD on Tdap 05/26/2021 UTD COVID 19 vaccine, get the latest COVD 19 vaccineUTD on shingrix vaccineUTD PCV #20 02/04/2022 RTC in 4 monthsGet labsER if worseHe and his did verbalize his understand ing of the above Gastroesop hageal reflux disease without esophagitis 334590633 K21.9 EGD: 07/09/2021 : Dr Mai: GastritisN ot on any meds Alcohol dependence 11310 003 F10.20 Advised to wean off and stop!On thiamine and folate Hyperlipidemia 97960842 E78.5 On rosuvastat in 40mg daily, declines any increase more diet and exercise is needed History of malignant neoplasm of colon 449325688 Z85.038 S/p lap sigmoidect eladia 08/24/2021 Dr Baca 12/08/2021 , on chemoRx, on zofram, on iron Dr Baca 04/27/2022 , to get c-scope with Dr Mai C-scope 07/20/2022 : Dr Mai next in 2 yearsDr Phuong 08/01/2022 : f/u in 4 monthsDr Phuong 12/06/2022 : f/u in 4 months, s/p port removed Essential hypertension 01843862 I10 BP is stable here and at Dr Baca's office on 12/08/2021 was 130/80No CVS or LOGGING ENGINEER complaints States that when his BP was taken at work he was working in a hot and humid environmen t and was wearing heavy PPE, also the nurse at his work did not remove his PPE and did the BP while he was wearing his heavy shirtAdvis ed to only do BP checks at restCan RTW full duty, RTC in 2 weeks for a BP welfare case worker if any symptoms worsen, he verbalized his understand ing of the above OV 05/02/2022 :Does well at this time OV 12/28/2022 : Does well at this time Increased liver function 34356026 R94.5 US liver 04/26/2022 : SteatosisG et a referral to GI hepatology Dr Bangura [id number] Charlie sanchez MD [facility] Rehana hdez [address] [facility] [place] [address] 01/03/2024 15:45:18 01/03/2024 16:38:26 Screening - NAD [id number] Z13.9 C-scope: Dr Mai 07/09/2021 , Dr De La Cruz 07/30/2021 :CRC Get yearly flu shotUTD on Tdap 05/26/2021 UTD COVID 19 vaccine, get the latest COVD 19 vaccineUTD on shingrix vaccineUTD PCV #20 02/04/2022 RTC in 4 monthsGet labsER if worseHe and his did verbalize his understand ing of the above Gastroesop hageal reflux disease without esophagitis 640379755 K21.9 EGD: 07/09/2021 : Dr Mai: GastritisN ot on any meds Alcohol dependence 71224 003 F10.20 Advised to wean off and stop!On thiamine and folate Hyperlipidemia 13241810 E78.5 On rosuvastat in 40mg daily, declines any increase more diet and exercise is needed OV 01/03/2024 :Not on any medsGet labs History of malignant neoplasm of colon 335455190 Z85.038 S/p lap sigmoidect eladia 08/24/2021 Dr Baca 12/08/2021 , on chemoRx, on zofram, on iron Dr Baca 04/27/2022 , to get c-scope with Dr Mai C-scope 07/20/2022 : Dr Mai next in 2 yearsDr Phuong 08/01/2022 : f/u in 4 monthsDr Phuong 12/06/2022 : f/u in 4 months, s/p port removedDr Phuong 12/25/2023 : F/u in 4 months Essential hypertension 07424139 I10 BP is stable here and at Dr Baca's office on 12/08/2021 was 130/80No [employer] or 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 complaints States that when his BP was taken at work he was working in a hot and humid environmen t and was wearing heavy PPE, also the nurse at his work did not remove his PPE and did the BP while he was wearing his heavy shirtAdvis ed to only do BP checks at restCan RTW full duty, RTC in 2 weeks for a BP welfare case worker if any symptoms worsen, he verbalized his understand ing of the above OV 05/02/2022 :Does well at this time OV 12/28/2022 : Does well at this timeOV 01/03/2024 : Does well Increased liver function 11550201 R94.5 US liver 04/26/2022 : SteatosisL FTs WNL 12/11/2023 Repeat the US liver Screening for malignant neoplasm of prostate 711142202 Z12.5 Vitamin D deficiency 347 03578 E55.9 Influenza vaccine needed [id number] 106 Z23 Administra tion of influenza vaccine 80384159 Z23 Hyperproteinemia 6646544 [address] Baca and is to discuss this with his office Health Concerns Section Related Observation LastModified by Organization Detai ls LastModified Time None Recorded Concern Status LastModified by Organization Details LastModified Time None Recorded Advance Directives Directive Y: Payers Encounter Date Sequence Insurance Name Policy Number Policy Garcia Covered Member ID Garcia Member ID Guarantor Name 09/05/2022 1 [place] [id number] [facility] [id number] [facility] 12/28/2022 1 [place] [id number] [facility] [id number] [employer] Crow 01/03/2024 1 [place] [id number] [facility] [id number] [facility] Notes Date Note Type Note Provider Name and Address Organization Details Recorded Time 09/05/2022 text/html OV 05/26/2021:He re to establish carePast Hx:NoneReviewed social family and surgical historyHere with his wifeDoes wellNeeds to do labs OV 12/13/2021:Here for his f/u, needs a note for his BP for his work, he is doing very wellHe is s/p surgery for CRC and does now see Dr Baca OV 05/02/2022:Here for his f/u apt with his , he feels well, did do the labs on 04/27/2022 OV 09/05/2022: Here for his f/u apt, he is doing well, he did do the labs, he did do the c-scope and did see Dr Phuong Alejo MD [address] [place] [address], [address], [address], [place] [facility] 12/30/2022 11:52:32 12/28/2022 text/html OV 05/26/2021:He re to establish carePast Hx:NoneReviewed social family and surgical historyHere with his wifeDoes wellNeeds to do labsOV 12/13/2021:Here for his f/u, needs a note for his BP for his work, he is doing very wellHe is s/p surgery for CRC and does now see Dr Man 05/02/2022:Here for his f/u apt with his , he feels well, did do the labs on 04/27/2022 OV 09/05/2022: Here for his f/u apt, he is doing well, he did do the labs, he did do the c-scope and did see Dr Baca OV 12/28/2022: Cheryl is doing well today, he did do the labs, he did see Dr Phuong Alejo MD [address], [address], [place], [address], [facility] [employer] 12/28/2022 11:16:41 01/03/2024 text/html OV 05/26/2021:[facility] Hx:NoneReviewed social family and surgical historyHere with his wifeDoes wellNeeds to do labsOV 12/13/2021:Here for his f/u, needs a note for his BP for his work, he is doing very wellHe is s/p surgery for CRC and does now see Dr Man 05/02/2022:Here for his f/u apt with his , he feels well, did do the labs on 04/27/2022 OV 09/05/2022: Here for his f/u apt, he is doing well, he did do the labs, he did do the c-scope and did see Dr Baca OV 12/28/2022: Cheryl is doing well today, he did do the labs, he did see Dr Baca OV 01/03/2024: Here for his f/u apt, he feels very well, he has done the labs with Dr Baca, here with his , states that he has been vigorously dieting Charlie Alejo MD [address], [address], [place], [address], [employer] [facility] [employer] 01/19/2024 22:50:05
--- OUTSIDE RECORDS SUMMARY | 2024-06-25 16:13 | XMS_ITS | Clinical Summary ---
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 Gender Identity Not on file Sexual Orientation Not on file Plan of Treatment Health Maintenance Due Date Last Done Comments Hepatitis C Virus (HCV) Screening 1965 TdaP Immunization 1965 Colonoscopy 12/26/2008 Colorectal Cancer Screening 12/26/2008 Cologuard 12/26/2013 Immunochemical Fecal Occult Blood 12/26/2013 Pneumococcal Immunization (5 0+ years) (1 of 1 - PCV) 12/26/2013 Zoster Immunization (1 of 2) 12/26/2013 PSA Discussion 12/26/2018 Influenza Immunization (#1) 2023 SARS-COV-2 Immunization ( season) 2023 02/12/2021, 05/29/2020, 05/01/2020 Respiratory Syncytial Virus (RSV) Immunization (Adult) (1 - 1-dose 75+ series) 12/26/2038 Hepatitis B Immunization Aged Out No longer eligible based on patient's age to complete this topic Meningococcal Immunization (ACWY) Aged Out No longer eligible b ased on patient's age to complete this topic Pneumococcal Immunization Combined Aged Out No longer eligible b ased on patient's age to complete this topic Rotavirus Immunization Aged Out No lo nger eligible based on patient's age to complete this topic
[2024-06-25 16:59] LABS: Alanine Aminotransferase 26 U/L (6-50); Albumin Level 4.7 g/dL (3.5-5.1); Alkaline Phosphatase 63 U/L (38-126); Anion Gap 11 mmol/L (4-12); Aspartate Amino Transferase 40 U/L (17-59); Bilirubin,Total 0.4 mg/dL (0.2-1.3); Blood Urea Nitrogen 13 mg/dL (9-20); Calcium 9.2 mg/dL (8.4-10.2); Carbon Dioxide 28 mmol/L (22-30); Chloride 103 mmol/L (98-107); Estimated Glomerular Filt Rate > 60; Glucose 83 mg/dL (65-110); Potassium 4.8 mmol/L (3.4-5.0); Sodium 142 mmol/L (137-145)
== END 2024-06-25 14:43 | disposition home or self-care (01) ==
PROVIDERS: PCP Internal Medicine; Visit Provider Internal Medicine Hematology & Oncology
DX: C18.7 Malignant neoplasm of sigmoid colon (principal)
CPT/HCPCS: 36415; 80053; 82378; 85025

== ENCOUNTER 2024-09-11 01:39 | Day surgery (SDC) | payer BC, SELFPAY ==
[2024-09-03 08:22] VITALS: BMI 32.5
--- OUTSIDE RECORDS SUMMARY | 2024-09-11 01:42 | XMS_ITS | Clinical Summary ---
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
--- OUTSIDE RECORDS SUMMARY | 2024-09-11 01:42 | XMS_ITS | Data Portability ---
Author Organization [place] [facility], Main Office Address [address] [place] [address] Assessment Encounter Date Assessment Date Assessment LastModified [...] PSA, total, serum or plasma 2023 024 [email or web address] [facility], [address] [facility], [facility] 2, [place], [address], 5 12:30:33 vitamin D, 25-hydroxy, total, serum 2023 024 [email or web address] [facility], [address] [place] [address], [facility] 2, [place], [address], 5 16:38:18 lipid panel, serum 2023 024 [email or web address] [facility], [address] [place] [address], [facility] 2, [place], [address], 5 12:30:32 T4, free, serum 2023 024 [email or web address] [facility], [address] [place] [address], [facility] 2, [place], [address], 5 12:30:32 TSH, ultra-sensi tive, serum 2023 024 [email or web address] [facility], [address] [facility], [facility] 2, [place], [address], 5 12:30:32 lipid panel, serum 2022 023 [email or web address] [facility], 102 [facility], [facility] 2, [place], [address], 4 08:19:16 CBC w/ auto diff 2022 023 JOSAFAT [facility], [address], [place], [address], 4 17:33:39 CMP, serum or plasma 2022 023 JOSAFAT [facility], [address], [address], [place], [address], 4 06:03:39 T4, free, serum 2022 023 [email or web address] [facility], [address], [address], [place], [address], 4 08:19:16 TSH, ultra-sensi tive, serum 2022 023 [email or web address] [facility], [address], [address], [place], [address], 4 08:19:17 PSA, total, serum or plasma 2022 023 [email or web address] [facility], [address], [address], [place], [address], 4 17:47:17 lipid panel, serum 2022 023 JOSAFAT [facility], [address], [address], [place], [address], 3 13:47:43 CBC w/ auto diff 2022 023 JOSAFAT [facility], [address], [address], [place], [address], 3 13:47:43 CMP, serum or plasma 2022 023 JOSAFAT [facility], [address], [address], [place], [address], 3 13:47:43 T4, free, serum 2022 023 [email or web address] [facility], 102 [facility], [facility] 2, [place], [address], 4 17:47:16 TSH, ultra-sensi tive, serum 2022 023 [email or web address] [facility], 102 [facility] 2, [place], [address], 4 17:47:17 Referral gastroenter ologist referral 2022 024 [email or web address] Jane David MD, [address] [facility], [facility] 28, [place], [address], 4 08:19:55 gastroenter ologist referral 2022 023 [email or web address] Ace Baca MD, [address], [place], [address], 3 17:50:54 Procedures None recorded. Surgeries None recorded. Imaging US, liver - Please call patient to schedule. 2023 024 [email or web address] [facility], [address], [address], [place], [address], 4 08:56:36 Medication Orders rosuvastati n 40 mg tablet 2022 023 [id number], 2 [facility], [place], [place], [id number], 4 15:55:25 Patient TargetsNo targets recorded. Patient Instructions Encounter Date Encounter Id Patient Instructions Last Modified By Organization Details Last Modified Time 12/28/2022 [id number] Due to the COVID-19 (Novel Coronavirus) pandemic, it is within this context (and with the understanding that this method of patient encounter is in the patient s best interest as well as the health and safety of other patients and the public) that t [facility] is being provided for this patient encounter rather than a senl-hm-jcch visit. This patient encounter is appropriate at [...] Not available 12/28/2022 11:03:17 Reason for Referral Stable Manager Referral for Increased liver function Referring Physician: Charlie Alejo, Internal Medicine, Encounter Date: 09/05/2022 Stable Manager Referral for Increased liver function Referring Physician: Charlie Alejo, Internal Medicine, Encounter Date: 12/28/2022 Results Created Date Observation Date Name Description Value Unit Range Abnormal Flag Note LastModifiedBy Organization Detail LastModifiedTime 01/08/2001/07/2022 XR, gregorio catho gram No observ ation record ed. [id number], [place], [address], 05/26/2022 00:27:35 04/13/1904/13/2022 CT, abdom en + pelvi s, w/o contr ast No observ ation record ed. [id number], [place], [address], 05/26/2022 00:27:35 04/26/1904/26/2022 US, liver No observ ation record ed. [facility]. [place] [address], [place], [address], 05/26/2022 00:27:35 12/01/1911/29/2022 CT, abdom en + pelvi s, w/ contr ast No observ ation record ed. [email or web address] [facility] [address], [place], [address], 12/28/2022 17:06:49 12/18/19 24 12/18/2023 imagi ng/di agnos tic resul t No observ ation record ed. [facility] [address], [place], [address], 12/18/2023 10:23:23 Result Notes None recorded. Problems Name Problem SNOMED Code Status Onset Date Resolution Date Notes Provider Name and Address Organization Details Recorded Time Blood glucose outside reference range 995406041 Active 2021 Not Available [facility] 3 02:34:34 Hyperlipidemi a 51972286 Active 2021 Not Available [facility] 3 02:34:34 Gastroesophag eal reflux disease without esophagitis 550773206 Active 2022 Charlie sanchez MD [address], [address], [place], [address] , [employer] 3 16:53:12 Alcohol dependence 00630675 Active 2022 Charlie sanchez MD [address], [address], [place], [address] , [employer] [facility] [employer] [facility] 3 16:55:23 Essential hypertension 35248928 Active 2022 Charlie sanchez MD [address], [address], [place], [address] , [employer] 3 16:55:57 Increased liver function 89364977 Active 2022 Charlie sanchez MD [address], [place], [address] , [employer] [facility] [employer] [facility] 3 16:56:05 Vitamin D deficiency 58395092 Active 2023 Charlie sanchez MD [address], [address], [place], [address] , [employer] 16:20:03 Hyperproteine ashley 40296328 Active 2023 Charlie sanchez MD [address], [address], [place], [address] , [employer] 16:42:35 Problem Notes None recorded. Procedures Surgical History Date Name Laterality Status Provider Name and Address Organization Details Recorded Time 12/23/19 removal of implantable venous access port completed MAURI Bustos [employer] 12/28/2022 11:04:38 Colon Resection completed Not Available [employer] 05/26/2022 00:25:47 other completed Not Available [employer] 04/2022 00:25:47 Imaging Results None recorded. Procedure Notes None recorded. Medical Equipment None [...] % 98 % 79 /min 97.4 [degF] 884737. 9 g 120 mm[Hg] 76 mm[Hg] Not Available [facility] 3 00:25:56 Date Recorded Body height Body mass index (BMI) Body weight Body temperature Heart rate Systolic blood pressure Diastolic blood pressure Provider Name and Address Organization Details Last Updated DateTime 3 182.88 cm 35.7 kg/m2 564645. 79 g 97.2 [degF] 72 /min 110 mm[Hg] 64 mm[Hg] MAURI Bustos [place] [employer] 3 17:13:54 Date Recorded Body mass index (BMI) Body height Heart rate Body temperature Body weight Systolic blood pressure Diastolic blood pressure Provider Name and Address Organization Details Last Updated DateTime 2 37 kg/m2 182.88 cm 96 /min 97.3 [degF] 285727. 72 g 130 mm[Hg] 72 mm[Hg] Not Available [facility] 3 00:25:55 Date Recorded Body height Provider Name an d Address Organization Details Last Updated DateTime 12/28/2022 182.88 cm MAURI Bustos [place] [facility] 12/28/2022 11:03:23 Date Recorded Body height Body mass index (BMI) Body weight Body temperature Heart rate Respiratory rate Oxygen saturation Oxygen saturation in Arterial blood by Pulse oximetry Systolic blood pressure Diastolic blood pressure Provider Name and Address Organization Details Last Updated DateTime 4 182.88 cm 32 kg/m2 523504. 8 g 97.8 [degF] 80 /min 18 /min 95 % 95 % 134 mm[Hg] 80 mm[Hg] Miguel Birmingham LPN [place] [facility] 4 16:10:52 Social History Question Answer Notes LastModified by Organizat ion Details LastModified Time Tobacco Smoking Status Former Smoker Not Available [employer] 05/26/2022 00:25:20 Do You Have An Advance Directive? Yes [id number].[id number] Information not available 05/26/2022 What Is Your Level Of Caffeine Consumption? None MIGRATION.40828 33887 Information not available 05/26/2022 In The 14 Days Before Symptom Onset, Have You Had Close Contact With A Laboratory-confi rmed COVID-19 While That Case Was Ill? No MIGRATION.26692 08120 Information not available 05/26/2022 In The 14 Days Before Symptom Onset, Have You Had Close Contact With A Person Who Is Under Investigation For COVID-19 While That Person Was Ill? No MIGRATION.98371 55497 Information not available 05/26/2022 What Type Of Diet Are You Following? REGULAR MIGRATION.00467 54788 Information not available 05/26/2022 What Is The Highest Grade Or Level Of School You Have Completed Or The Highest Degree You Have Received? [id number] MIGRATION.23882 82533 Information not available 05/26/2022 Have There Been Any Changes To Your Family Or Social Situation? Yes MIGRATION.04178 60407 Information not available 05/26/2022 What Is The Fluoride Status Of Your Home? Unknown MIGRATION.20737 28999 Information not available 05/26/2022 When Did You Quit Smoking? 16+yearssincelastc igarette MIGRATION.22185 53524 Information not available 05/26/2022 Are There Any Guns Present In Your Home? No MIGRATION.83434 77563 Information not available 05/26/2022 Do You Use Insect Repellent Routinely? No MIGRATION.61288 52006 Information not available 05/26/2022 [facility] MIGRATION.55468 81469 Information not available 05/26/2022 Do You Have A Medical Power Of Contact Lens Fitter? Yes MIGRATION.47916 81048 Information not available 05/26/2022 What Was The Date Of Your Most Recent Tobacco Screening? 12/28/2022 Information not available 12/28/2022 Do You Have Any Pets? Yes MIGRATION.29229 14459 Information not available 05/26/2022 What Is Your Relationship Status? MIGRATION.47693 13759 Information not available 05/26/2022 Do You Use Your Seat Belt Or Car Seat Routinely? Yes MIGRATION.55710 67850 Information not available 05/26/2022 Do You Have Smoke And Carbon Monoxide Detectors In Your Home? Yes MIGRATION.15934 96762 Information not available 05/26/2022 Are You Passively Exposed To Smoke? No MIGRATION.85694 77649 Information not available 05/26/2022 Are There Any Smokers In Your House? No MIGRATION.60008 51983 Information not available 05/26/2022 Do You Use Sunscreen Routinely? Yes MIGRATION.99602 86816 Information not available 05/26/2022 Has Tobacco Cessation Counseling Been Provided? No MIGRATION.71530 63071 Information not available 05/26/2022 Have You Recently Traveled Abroad? No MIGRATION.51318 49025 Information not available 05/26/2022 Do You Have Any Dietary Restrictions? No MIGRATION.79676 07393 Information not available 05/26/2022 Sex: Male Functional Status Question Answer Note LastModified by [employer] ion Details LastModified Time Do you use any illicit or recreational drugs? No MIGRATION.701940 4639 Information not available 05/26/2022 Do you or have you ever used any other forms of tobacco or nicotine? No MIGRATION.473515 4084 Information not available 05/26/2022 What is your level of alcohol consumption? 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 Moderate MIGRATION.516224 3311 Information not available 05/26/2022 Mental Status Question Answer Note LastModified by [facility] Details LastModified Time Do you feel stressed (tense, restless, nervous, or anxious, or unable to sleep at night)? [id number] MIGRATION.[id number] Information not available 05/26/2022 Family History Relationship Description Onset Age of this Age Resolved Age Notes LastModified by Organization Details LastModified Time Father Malignant neoplasm of lung [id number].[id number] Not available 05/26/2022 00:25:48 Medical History Condition Response NERVE DISEASE N BLINDNESS N RHEUMATIC FEVER N KIDNEY STONES N BLADDER PROBLEMS N MRSA N OTHER # 1 N POLIO N LUNG DISEASE/DISORDER N HISTORY OF DRUG ABUSE N RADIATION / CHEMOTHERAPY N COPD N Other # 2 N BLOOD DISEASES N EAR OR HEARING PROBLEMS N MUMPS N SHINGLES N DEPRESSION (INCLUDING POST ) N BOWEL PROBLEMS N STROKE/TIA N ULCERS N BENIGN PROSTATIC [...] N CHRONIC PAIN SYNDROME N HYPOTHYROIDISM N CAROTID BLOCKAGE N CONSTIPATION N BACK / NECK PROBLEMS N ATHEROSCLEROSIS [...] 50 mcg/0.25mL dose 02/12/2021 completed Not Available [facility] 3 02:34:34 COVID-19, mRNA, LNP-S, PF, 100 mcg/0.5mL dose or 50 mcg/0.25mL dose 05/29/2020 completed Not Available [facility] 3 02:34:34 COVID-19, mRNA, LNP-S, PF, 100 mcg/0.5mL dose or 50 mcg/0.25mL dose 05/01/2020 completed Not Available [facility] 02:34:34 Tdap 05/26/2021 completed Not Available [facility] 06/15/2022 02:34:34 Influenza, split virus, quadrivalent, PF 05/26/2021 completed Not Available [facility] 02:34:34 Influenza, split virus, trivalent, PF 01/03/2024 completed Charlie Alejo MD [address] [facility], [facility] 301, [place], [address], [facility] 01/19/2024 22:49:27 Past Encounters Encounter ID Performer Location Encounter Start Date Encounter Closed Date Diagnosis/Indication Diagnosis SNOMED-CT Code Diagnosis ICD10 Code Diagnosis Note [id number] Charlie sanchez MD [facility] [address] [place] [address] [place] [address] 05/26/2021 00:00:00 05/26/2021 18:13:52 [id number] Charlie sanchez MD [facility] Internal [facility] [address] [place] [address] 12/13/2021 00:00:00 01/28/2022 17:26:18 [id number] Charlie sanchez MD [facility] Internal [facility] [address] [place] [address] 05/02/2022 00:00:00 05/02/2022 17:57:00 [id number] Charlie sanchez MD [facility] [address] [place] [address] [place] [address] 09/05/2022 16:56:09 09/05/2022 17:52:48 Screening - NAD 741721606 Z13.9 C-scope: Dr Mai 07/09/2021 , Dr De La Cruz 07/30/2021 :CRC UTD yearly flu shot 05/26/2021 UTD on Tdap 05/26/2021 UTD COVID 19 vaccineCan do shingrix vaccine RTC in 4 monthsGet labsER if worseHe and his did verbalize his understand ing of the above Gastroesop hageal reflux disease without esophagitis 676626684 K21.9 EGD: 07/09/2021 : Dr Mai: GastritisN ot on any meds Alcohol dependence 65148 003 F10.20 Advised to wean off and stop!On thiamine and folate Hyperlipidemia 71402466 E78.5 On rosuvastat in 40mg daily needs a refill, more diet and exercise is needed, renewed 09/05/2022 Get labs History of malignant neoplasm of colon 354939431 Z85.038 S/p lap sigmoidect eladia 08/24/2021 Dr Baca 12/08/2021 , on chemoRx, on zofram, on iron Dr Baca 04/27/2022 , to get c-scope with Dr Mai C-scope 07/20/2022 : Dr Mai next in 2 yearsDr Baca 08/01/2022 : f/u in 4 months Essential hypertension 97294575 I10 BP is stable here and at Dr Baca's office on 12/08/2021 was 130/80No CVS or ORAL SURGERY ASSISTANT complaints States that when his BP was [...] RTC in 2 weeks for a BP art editor if any symptoms worsen, he verbalized his understand ing of the above OV 05/02/2022 :Does well at this time Increased liver function 03286181 R94.5 US liver 04/26/2022 : SteatosisG et a referral to GI hepatology Screening for malignant neoplasm of prostate 691213914 Z12.5 [id number] Charlie sanchez MD [facility] [address] [place] [address] 12/28/2022 10:55:08 12/28/2022 12:09:22 Screening - NAD 914094217 Z13.9 C-scope: Dr Mai 07/09/2021 , Dr De La Cruz 07/30/2021 :CRC Get yearly flu shotUTD on Tdap 05/26/2021 UTD COVID 19 vaccine, get the latest COVD 19 vaccineUTD on shingrix vaccineUTD PCV #20 02/04/2022 RTC in 4 monthsGet labsER if worseHe and his did verbalize his understand ing of the above Gastroesop hageal reflux disease without esophagitis 824251353 K21.9 EGD: 07/09/2021 : Dr Mai: GastritisN ot on any meds Alcohol dependence 70346 003 F10.20 Advised to wean off and stop!On thiamine and folate Hyperlipidemia 06412370 E78.5 On rosuvastat in 40mg daily, declines any increase more diet and exercise is needed History of malignant neoplasm of colon 005367398 Z85.038 S/p lap sigmoidect eladia 08/24/2021 Dr Baca 12/08/2021 , on chemoRx, on zofram, on iron Dr Baca 04/27/2022 , to get c-scope with Dr Mai C-scope 07/20/2022 : Dr Mai next in 2 yearsDr Phuong 08/01/2022 : f/u in 4 monthsDr Baca 12/06/2022 : f/u in 4 months, s/p port removed Essential hypertension 60271286 I10 BP is stable here and at Dr Baca's office on 12/08/2021 was 130/80No CVS or ORAL SURGERY ASSISTANT complaints States that when his BP was [...] RTC in 2 weeks for a BP art editor if any symptoms worsen, he verbalized his understand ing of the above OV 05/02/2022 :Does well at this time OV 12/28/2022 : Does well at this time Increased liver function 59225869 R94.5 US liver 04/26/2022 : SteatosisG et a referral to GI hepatology Dr Bangura [id number] Charlie sanchez MD [facility] [address] [facility] [place] [address] 01/03/2024 15:45:18 01/03/2024 16:38:26 Screening - NAD 525338227 Z13.9 C-scope: Dr Mai 07/09/2021 , Dr De La Cruz 07/30/2021 :CRC Get yearly flu shotUTD on Tdap 05/26/2021 UTD COVID 19 vaccine, get the latest COVD 19 vaccineUTD on shingrix vaccineUTD PCV #20 02/04/2022 RTC in 4 monthsGet labsER if worseHe and his did verbalize his understand ing of the above Gastroesop hageal reflux disease without esophagitis 286499205 K21.9 EGD: 07/09/2021 : Dr Mai: GastritisN ot on any meds Alcohol dependence 71959 003 F10.20 Advised to wean off and stop!On thiamine and folate Hyperlipidemia 66699934 E78.5 On rosuvastat in 40mg daily, declines any increase more diet and exercise is needed OV 01/03/2024 :Not on any medsGet labs History of malignant neoplasm of colon 576624107 Z85.038 S/p lap sigmoidect eladia 08/24/2021 Dr Baca 12/08/2021 , on chemoRx, on zofram, on iron Dr Baca 04/27/2022 , to get c-scope with Dr Mai C-scope 07/20/2022 : Dr Mai next in 2 yearsDr Phuong 08/01/2022 : f/u in 4 monthsDr Phuong 12/06/2022 : f/u in 4 months, s/p port removedDr Phuong 12/25/2023 : F/u in 4 months Essential hypertension 05503904 I10 BP is stable here and at Dr Baca's office on 12/08/2021 was 130/80No CVS or ORAL SURGERY ASSISTANT complaints States that when his BP was [...] RTC in 2 weeks for a BP art editor if any symptoms worsen, he verbalized his understand ing of the above OV 05/02/2022 :Does well at this time OV 12/28/2022 : Does well at this timeOV 01/03/2024 : Does well Increased liver function 78758098 R94.5 US liver 04/26/2022 : SteatosisL FTs WNL 12/11/2023 Repeat the liver Screening for malignant neoplasm of prostate 127317446 Z12.5 Vitamin D deficiency 347 59725 E55.9 Influenza vaccine needed 0290480148 106 Z23 Administra tion of influenza vaccine 47779636 Z23 Hyperproteinemia 2340361 [address] Baca and is to discuss this with his office Health Concerns Section Related Observation LastModified by Organization Detai ls LastModified Time None Recorded Concern Status LastModified by Organization Details LastModified Time None Recorded Advance Directives Directive Y: Payers Insurance Date Sequence Insurance Name Policy Number Policy Garcia Covered Member ID Garcia Member ID Guarantor Name 05/06/2024 1 [place] [id number] [facility] [id number] [id number] [facility] Notes Date Note Type Note Provider Name [...] and did see Dr Phuong Alejo MD [address] [place] [address], [address], [place], [address], [facility] [employer] 12/30/2022 11:52:32 12/28/2022 text/html OV 05/26/2021:He re [...] and did see Dr Baca OV 12/28/2022: TelevisitHe is doing well today, he did do the labs, he did see Dr Phuong Alejo MD [address] [facility] [address], [place], [address], [facility] [employer] 12/28/2022 11:16:41 01/03/2024 text/html OV 05/26/2021:He re to establish carePast [...] and did see Dr Baca OV 12/28/2022: TelevisitHe is doing well today, he did do the labs, he did see Dr Baca OV 01/03/2024: Here for his f/u apt, he feels very well, he has done the labs with Dr Baca, here with his , states that he has been vigorously dieting Charlie Alejo MD [address] [place] [address], [facility] [address], [place], [address], [place] [facility] 01/19/2024 22:50:05
--- OUTSIDE RECORDS SUMMARY | 2024-09-11 01:42 | XMS_ITS | Clinical Summary ---
Author Organization [facility] Gladis darío [facility] Address [address] [place] [address] Care Team Providers Care Automation Driver Name Role Phone Charlie Alejo MD Primary Care Provider Allergies No known active allergies Medications rosuvastatin (CRESTOR) 40 mg tablet Take 40 mg by mouth daily. Active [id number] 1 mg-1.5 mg- 1.7 mg-50 mg Tablet [...] Encounters Date Type Department Care Team Description 08/20/2024 External Device Data [facility] ABSTRACTION Provider, Abstract 08/15/2024 External Device Data [facility] ABSTRACTION Provider, Abstract 08/14/2024 External Device Data [facility] ABSTRACTION Provider, Abstract 08/13/2024 External Device Data [facility] ABSTRACTION Provider, Abstract 07/01/2024 11:00 AM CDT Office Visit [facility] Oncology and Hematology - [place] [address] [place] [address] Ace Baca MD Malignant neoplasm of sigmoid colon (CMS/HCC) (Primary Dx) 06/26/2024 Orders Only [facility] Oncology and Hematology - [place] [address] [place] [address] Ace Baca MD 06/25/2024 Orders Only [facility] Oncology and Hematology - [place] [address] [place] [address] Ace Baca MD 06/12/2024 External Device Data [...] Sign Reading Time Taken Comments Blood Pressure 130/90 07/01/2024 11:21 AM CDT Pulse 77 07/01/2024 11:12 AM CDT Temperature 36.5 C (97.7 F) 07/01/2024 11:12 AM CDT Respiratory Rate 16 07/01/2024 11:1 2 AM CDT Oxygen Saturation 96% 12/25/2023 4:05 PM CDT Inhaled Oxygen Concentration - - Weight 114.5 kg (252 lb 6.4 oz) 025 11:12 AM CDT Height 182.9 cm (6') 01/05/2022 8:33 AM CDT Body Mass Index 34.23 01/05/2022 8:33 AM CDT Plan of Treatment Upcoming Encounters Date Type Department Care Team (Late st Contact Info) Description 10/31/2024 2:30 PM CDT Office Visit [facility] Oncology and Hematology - [place] [address] [facility] [address] [place] [address] Ace Baca MD [address] [facility] [address] [place] [address] Health Maintenance Due Date Last Done Comments Pre-Diabetes and Diabetes Screening 1965 DTAP/TDAP/TD VACCINES (1 - Tdap) 12/26/1982 ZOSTER VACCINE (1 of 2) 12/26/2013 INFLUENZA VACCINE (#1) 2023 COVID-19 Vaccine (2 - 2023-2 5 season) 2023 02/12/2021 RSV VACCINE (60+ or ) (1 - 1-dose 75+ series) 12/26/2038 HEPATITIS B VACCINES Aged Out No long er eligible based on patient's age to complete this topic Procedures Procedure Name Priority Date/Time Associated Diagnosis Comments CBC MIXED CELL DIFFERENTIAL Routine 06/25/2024 3:54 PM CDT COMPREHENSIVE METABOLIC PANEL Routine 06/25/2024 7:59 AM CDT from Last 3 Months Results * CBC MIXED CELL DIFFERENTIAL (06/25/2024 3:54 PM CDT) Blood Ace Baca MD HEMATOLOGY ORDERABLES Final Res ult * COMPREHENSIVE METABOLIC PANEL (06/25/2024 7:59 AM CDT) Blood Ace Baca MD CHEMISTRY ORDERABLES Final Resu lt from Last 3 Months Insurance [facility] BLUE ACCESS CHOICE Care Teams Automation Driver Relationship Specialty Start Date End Date Charlie Alejo MD PCP - General Internal Medicine 09/17/21
[2024-09-11 11:40] VITALS: BP 162/90; PULSE 77; RESP 18; TEMP 36.7; O2SAT 97; BMI 33.5
[2024-09-11] MEDS: LACTATED RINGERS 1,000 ML 150 ML IV CONT (11:58)
--- NOTE | 2024-09-11 12:00 | P.PNAN_ITS ---
Anes - Initial Pre Proc Eval Procedure: Operation Date: 09/11/24 13:00 Proposed Procedures p Colonoscopy - Elías Allred MD Date/Time: 09/11/24 12:00 Surgeon: Elías Allred MD Pre Op Diagnosis: Malignant neoplasm of sigmoid colon Patient Data Age: 58 Gender: M Height: 1.83 m Weight: 112 kg Last Vital Signs Temp 98.0 F 09/11/24 11:40 Pulse 77 09/11/24 11:40 Resp 18 09/11/24 11:40 BP 162/90 H 09/11/24 11:40 Pulse Ox 97 09/11/24 11:40 O2 Del Method Room Air 09/11/24 11:40 Allergies Allergy/AdvReac Type Severity Reaction Status Date / Time No Known Allergies Allergy Verified 09/11/24 11:47 Home Medications ?Medication ?Instructions ?Recorded ?Confirmed ?Type No Home Medications 09/03/24 09/03/24 History Patient hx anesthesia problems: none Family hx anesthesia problems: none Results Review: All pre-operative results and documents have been reviewed as part of the pre-operative evaluation. [facility] Past Medical History Medical History Colon cancer Hyperlipidemia Obesity Surgical History Surgical History H/O colonoscopy History of colon resection sigmoid colon resection 08/24/21 [place] teeth extracted Family History Family History Father Heart disease Lung cancer Social History Social History Smoking packs per day: 0.75 Smoking cigarettes per day: 15.0 Years smoked: 7 Smoking pack-years: 5.25 Smoking status: Never smoker Tobacco type: cigarettes Second hand tobacco smoke exposure: No Smoking end date: 03/27/92 Alcohol intake: current Drinks per week: 12 Alcohol use details: 4-6 drinks/day most days Substance use: never Substance use type: does not use Living arrangements: with family Occupation/Education: occupation 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 Informed Consent: The patient's anesthetic plan and its attendant risks and benefits were discussed with the patient/family/POA. Questions were solicited and answers provided to the satisfaction of the patient/family/POA.
--- NOTE | 2024-09-11 12:20 | PM.HPGS ---
History of Present Illness History of Present Illness Consent: Risks, benefits, and alternatives have been discussed and questions answered. Patient agrees to proceed with procedure. Chief complaint: Malignant neoplasm of sigmoid colon Narrative: Valentin Crow Jr. is a 58 year old male with sigmoid cancer in 2021 s/p surgery then last colonoscopy 2 years ago. Review of Systems Review of Systems: All systems reviewed & are unremarkable except as noted in HPI and below PMFSH Past Medical History Medical History (Updated 09/11/24 @ 12:21 by Elías Allred MD) History of colon cancer Colon cancer Obesity Hyperlipidemia Surgical History Surgical History History of colon resection sigmoid colon resection 08/24/21 H/O colonoscopy [place] teeth extracted Family History Family History Father Heart disease Lung cancer Social History Social History Smoking packs per day: 0.75 Smoking cigarettes per day: 15.0 Years smoked: 7 Smoking pack-years: 5.25 Smoking status: Never smoker Tobacco type: cigarettes Second hand tobacco smoke exposure: No Smoking end date: 03/27/92 Alcohol intake: current Drinks per week: 12 Alcohol use details: 4-6 drinks/day most days Substance use: never Substance use type: does not use Living arrangements: with family Occupation/Education: occupation 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 Gender identity (if verbalized by the patient): Male Spiritual care concerns: No Meds Home Medications and Allergies Home Medications ?Medication ?Instructions ?Recorded ?Confirmed ?Type No Home Medications 09/03/24 09/03/24 History Allergies Allergy/AdvReac Type Severity Reaction Status Date / Time No Known Allergies Allergy Verified 09/11/24 11:47 Vital Signs Vital Signs - 24 hr 09/11/24 11:40 Temperature 98.0 F Pulse Rate 77 Respiratory Rate 18 Blood Pressure 162/90 H Pulse Oximetry 97 Oxygen Delivery Room Air Exam Const: General: comfortable and no acute distress HENMT: Face/Nose/Sinus: Normal nares present Eyes: General: appearance normal, both eyes and all related structures Neck: Neck: no JVD Resp: Auscultation: clear to auscultation bilaterally Cardio: Rate: regular rate Rhythm: regular rhythm GI: Inspection: non-distended GI Palp: Yes Soft to palpation Skin: General skin exam: normal color Neuro: General: gait normal Speech: normal speech Extrem: General: normal to inspection Psych: Mental Status: mental status grossly normal Assessment and Plan Assessment and plan (1) History of colon cancer: Code(s): Z85.038 - Personal history of other malignant neoplasm of large intestine Status: Acute Assessment and Plan: colonoscopy
--- NOTE | 2024-09-11 12:35 | S_PTH ---
PATIENT: Valentin Crow Jr. LOC: [facility] Palafox#:[id number] AGE/SX: 58/M ROOM: RE09/11/[address]: Elías Allred MD : 1965 BED: DIS: 09/11/2024 SPEC #: [id number] RECD: 09/11/24 12:45 STATUS: STACEY REPerez #: [id number] ALEX: 09/11/24 12:[address]: Elías Allred DEPT: [facility] Surgical RECD BY: Oliver Boyd ENTERED: 09/11/24 12:45 SP TYPE: Surgical OTHR DR: Charlie AlejoMD Tissues: A - Colon Polypectomy Procedures: Hematoxylin and Eosin Stain Gross and Microscopic Level 4
[2024-09-11 12:39] VITALS: BP 120/71; PULSE 65; RESP 13; O2SAT 96
[2024-09-11 12:49] VITALS: BP 134/83; PULSE 64; RESP 14; O2SAT 95
[2024-09-11 12:59] VITALS: BP 141/87; PULSE 59; RESP 14; O2SAT 96
== END 2024-09-11 13:08 | disposition home or self-care (01) ==
PROVIDERS: PCP Internal Medicine; Referring Provider Internal Medicine Hematology & Oncology; Visit Provider Internal Medicine Gastroenterology
PROC: 0DJD8ZZ Inspection of Lower Intestinal Tract, Via Natural or Artificial Opening Endoscopic (ICD-10-PCS; CPT 45378; principal; 2024-09-11 13:00)
DX: Z08 Encounter for follow-up examination after completed treatment for malignant neoplasm (principal); D12.3 Benign neoplasm of transverse colon; K64.8 Other hemorrhoids; K57.30 Diverticulosis of large intestine without perforation or abscess without bleeding; E78.00 Pure hypercholesterolemia, unspecified; Z98.890 Other specified postprocedural states; Z98.0 Intestinal bypass and anastomosis status; Z90.49 Acquired absence of other specified parts of digestive tract; Z85.038 Personal history of other malignant neoplasm of large intestine; Z80.1 Family history of malignant neoplasm of trachea, bronchus and lung; Z82.49 Family history of ischemic heart disease and other diseases of the circulatory system
CPT/HCPCS: 45385; 88305; J2003; J2704; J7120

== ENCOUNTER 2024-10-24 08:35 | Outpatient (CLI) | payer BC, SELFPAY ==
--- NOTE | ~2024-10-24 | CT_ITS ---
CT of the Abdomen and Pelvis: Indication: Colon cancer Technique: 2.5 mm axial scans were obtained through the abdomen and pelvis following intravenous adm inistration of 100 cc of Omnipaque 350. Dose reduction technique was used on this scan by utilizing a utomated exposure control and iterative reconstruction technique. The dose-length product (DLP) was 1 289.63 mGy-cm. COMPARISON: 12/18/2023 Findings: Scans through the lung bases are unremarkable. The liver, spleen, pancreas, gallbladder, adrenals and kidneys are within normal limits. No evidence of aortic aneurysm. No lymphadenopathy. No bowel obstruction or bowel wall thickening. Rectosigmoid anastomosis noted. Images through the pelvis were performed. Questionable bladder wall thickening versus underdistention . No pelvic mass. No ascites. Impression: No evidence for active malignancy or metastatic disease. Possible cystitis versus bladder underdistention. Correlate clinically and with urinalysis, as indica shaw. Reviewed, dictated and finalized at location . Impression: No evidence for active malignancy or metastatic disease. Possible cystitis versus bladder underdistention. Correlate clinically and with urinalysis, as indicated.
--- OUTSIDE RECORDS SUMMARY | 2024-10-24 08:41 | XMS_ITS | Clinical Summary ---
Author Organization [facility] Gladis darío [facility] Address [address] [place] [address] Care Team Providers Care Medical Reimbursement Specialist Name Role Phone Charlie Alejo MD Primary Care Provider Allergies No known active allergies Medications rosuvastatin (CRESTOR) 40 mg tablet Take 40 mg by mouth daily. Active [id number] -[id number] 1 mg-1.5 mg- 1.7 mg-50 mg Tablet [...] Encounters Date Type Department Care Team Description 10/09/2024 External Device Data ST[facility] ABSTRACTION Provider, Abstract 10/08/2024 External Device Data [facility] ABSTRACTION Provider, Abstract 09/10/2024 External Device Data [facility] ABSTRACTION Provider, Abstract 08/20/2024 External Device Data STL ABSTRACTION Provider, [...] Description 10/31/2024 2:30 PM CDT Office Visit [facility] Oncology and Hematology - [place] [address] [facility] [address] [place] [address] Ace Baca MD [address] [facility] [address] [place] [address] Health Maintenance Due Date Last Done Comments Pre-Diabetes and Diabetes Screening 1965 DTAP/TDAP/TD VACCINES (1 - Tdap) 12/26/1982 ZOSTER VACCINE (1 of 2) 12/26/2013 COVID-19 Vaccine (2 - 2023-2 5 season) 2023 02/12/2021 INFLUENZA VACCINE (#1) 2024 RSV VACCINE (60+ or ) (1 - 1-dose 75+ series) 12/26/2038 HEPATITIS B VACCINES Aged Out No long er eligible based on patient's age to complete this topic Insurance [facility] BLUE ACCESS CHOICE Care Teams Medical Reimbursement Specialist Relationship Specialty Start Date End Date Charlie Alejo MD PCP - General Internal Medicine 09/17/21
--- OUTSIDE RECORDS SUMMARY | 2024-10-24 08:41 | XMS_ITS | Clinical Summary ---
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 Gender Identity Not on file Sexual Orientation Not on file Plan of Treatment Health Maintenance Due Date Last Done Comments Hepatitis C Virus (HCV) Screening 1965 TdaP Immunization 1965 Cologuard 12/26/2008 Colonoscopy 12/26/2008 Colorectal Cancer Screening 12/26/2008 Immunochemical Fecal Occult Blood 12/26/2008 Pneumococcal Immunization (5 0+ years) (1 of 1 - PCV) 12/26/2013 Zoster Immunization (1 of 2) 12/26/2013 SARS-COV-2 Immunization ( season) 2023 02/12/2021, 05/29/2020, 05/01/2020 Influenza Immunization (#1) 2024 Respiratory Syncytial Virus (RSV) Immunization (Adult) (1 - 1-dose 75+ series) 12/26/2038 Hepatitis B Immunization Aged Out No longer eligible based on patient's age to complete this topic Human Papillomavirus (HPV) Immunization Aged Out No longer eligible b ased on patient's age to complete this topic Meningococcal Immunization (ACWY) Aged Out No longer eligible b ased on patient's age to complete this topic Rotavirus Immunization Aged Out No lo nger eligible based on patient's age to complete this topic
[2024-10-24 09:07] LABS: Estimated Glomerular Filt Rate > 60
== END 2024-10-24 08:36 | disposition home or self-care (01) ==
PROVIDERS: PCP Internal Medicine; Visit Provider Internal Medicine Hematology & Oncology
DX: C18.7 Malignant neoplasm of sigmoid colon (principal)
CPT/HCPCS: 74177; Q9967

== ENCOUNTER 2024-10-29 13:39 | Outpatient (CLI) | payer BC, SELFPAY ==
--- OUTSIDE RECORDS SUMMARY | 2024-10-29 13:45 | XMS_ITS | Clinical Summary ---
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
--- OUTSIDE RECORDS SUMMARY | 2024-10-29 13:45 | XMS_ITS | Clinical Summary ---
Author Organization [facility] Gladis darío [facility] Address [address] [place] [address] Care Team Providers Care Professor Of Legal Studies Name Role Phone Charlie Alejo MD Primary Care Provider Allergies No known active allergies Medications rosuvastatin (CRESTOR) 40 mg tablet Take 40 mg by mouth daily. Active [id number] 1 mg-1.5 mg- 1.7 mg-50 mg Tablet [...] Description 10/31/2024 2:30 PM CDT Office Visit [facility] Oncology and Hematology - [place] [address] [facility] [address] [place] [address] Ace Baca MD [address] [facility] [address] [place] [address] Health Maintenance Due Date Last Done Comments Pre-Diabetes and Diabetes Screening 1965 DTAP/TDAP/TD VACCINES (1 - Tdap) 12/26/1982 ZOSTER VACCINE (1 of 2) 12/26/2013 COVID-19 Vaccine (2 - 2023-2 5 season) 2023 02/12/2021 Preventative Visit- Commercial 03/27/2024 INFLUENZA VACCINE (#1) 2024 RSV VACCINE (60+ or ) (1 - 1-dose 75+ series) 12/26/2038 HEPATITIS B VACCINES Aged Out No long er eligible based on patient's age to complete this topic Insurance [facility] BLUE ACCESS CHOICE Care Teams Professor Of Legal Studies Relationship Specialty Start Date End Date Charlie Alejo MD PCP - General Internal Medicine 09/17/21
[2024-10-29 13:54] LABS: Hematocrit 40.6 % (42.0-52.0); Hemoglobin 14.2 g/dL (14.0-18.0); Immature Granulocyte Percent A 0.5 % (0-0.5); Lymphocytes Absolute Auto 2.16 K/mm3 (0.9-3.2); Mean Corpuscular HGB Conc 35.0 g/dl (32-36); Mean Corpuscular Hemoglobin 32.1 pg (26-34); Mean Corpuscular Volume 91.6 fl (80-100); Nucleated Red Blood Cells Absolute Auto 0.000 K/mm3 (0.0-0.012); Nucleated Red Blood Cells Perc 0.0 % (0.0-0.2); Platelet Count Result 135 k/mm3 (150-375); Red Blood Count 4.43 M/mm3 (4.6-6.20); White Blood Count 6.3 K/mm3 (4.5-10.0)
[2024-10-29 16:24] LABS: Alanine Aminotransferase 25 U/L (6-50); Albumin Level 4.5 g/dL (3.5-5.1); Alkaline Phosphatase 66 U/L (38-126); Anion Gap 6 mmol/L (4-12); Aspartate Amino Transferase 42 U/L (17-59); Bilirubin,Total 0.4 mg/dL (0.2-1.3); Blood Urea Nitrogen 8 mg/dL (9-20); Calcium 9.2 mg/dL (8.4-10.2); Carbon Dioxide 27 mmol/L (22-30); Chloride 102 mmol/L (98-107); Estimated Glomerular Filt Rate > 60; Glucose 101 mg/dL (65-110); Potassium 4.5 mmol/L (3.4-5.0); Sodium 135 mmol/L (137-145); Total Protein 7.9 g/dL (6.3-8.2)
[2024-10-29 17:00] LABS: Carcinoembryonic Antigen 1.1 ng/mL (0.0-3.0)
== END 2024-10-29 13:40 | disposition home or self-care (01) ==
LOC: ANHLAB 13:40
PROVIDERS: PCP Internal Medicine; Visit Provider Internal Medicine Hematology & Oncology
DX: C18.7 Malignant neoplasm of sigmoid colon (principal)
CPT/HCPCS: 36415; 80053; 82378; 85025